=== PATIENT | male | born 1990 | race Caucasian/White ===

== ENCOUNTER → 2023-08-24 09:26 | Outpatient (CLI) | payer OTHER, SELFPAY ==
--- NOTE | ~2023-08-24 | CT_ITS ---
EXAMINATION: CT sinus wo con DATE: 08/24/2023 09:40 INDICATION: Chronic ethmoidal sinusitis TECHNIQUE: Computed tomography (CT) of the paranasal sinuses was performed without intravenous contra st. The dose-length product (DLP) was 263.20 mGy-cm. Iterative reconstruction was used. COMPARISON: None FINDINGS: The left frontal sinus is hypoplastic. Changes of bilateral maxillary sinus window procedur es are again noted. There is mild mucosal thickening of the ethmoidal air cells on the right. There i s a chronic 2.1 cm mucous retention cyst located inferolaterally in the left maxillary sinus. There i s a 6 mm mucous retention cyst located laterally in the right frontal sinus. There is a 10 mm mucus r etention cyst located inferiorly in the right maxillary sinus. There is a 4 mm by 15 mm mucous retent ion cyst located medially in the right maxillary sinus. The ostiomeatal units are patent. Visualized soft tissues are unremarkable. IMPRESSION: 1. Sinus disease as described above. Reviewed, dictated and finalized at location L. YL BLENDER OPERATOR
== END ==
PROVIDERS: PCP Otolaryngology; Visit Provider Otolaryngology
DX: J32.2 Chronic ethmoidal sinusitis (principal)
CPT/HCPCS: 70486

== ENCOUNTER 2025-03-24 16:08 | Emergency (ER) | payer BC, SELFPAY ==
--- NOTE | ~2025-03-24 | CT_ITS ---
EXAMINATION: CT brain wo con DATE: 03/24/2025 20:27 INDICATION: headache . TECHNIQUE: Computed tomography (CT) of the head was performed without intravenous contrast. The mA wa s adjusted according to patient size. Iterative reconstruction technique was employed. The dose-lengt h product was 605.33 mGy-cm. COMPARISON: None. FINDINGS: No acute intracranial hemorrhage or extra-axial fluid collection. No hydrocephalus, mass, or herniation. No acute ischemic infarct. Unremarkable dural venous sinus attenuation. No acute osseous abnormality. The aerated spaces are clear. Status post bilateral antral window procedure. IMPRESSION: No acute intracranial process. Reviewed, dictated and finalized at location K.
--- NOTE | ~2025-03-24 | XR_ITS ---
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 RESULT: Lines, tubes, and devices: None. Lungs and pleura: Clear. Cardiomediastinal silhouette: Normal. Other: No acute osseous or upper abdominal finding. IMPRESSION: No acute cardiopulmonary process. Reviewed, dictated and finalized at location K.
--- NOTE | ~2025-03-24 | CT_ITS ---
EXAMINATION: CT abdomen pelvis w con DATE: 03/24/2025 20:27 INDICATION: rlq pain TECHNIQUE: Computed tomography (CT) of the abdomen and pelvis was performed with 100 mL Omnipaque-350 intravenous contrast. Automated exposure control and iterative reconstruction technique were employe d. The dose-length product was 1627.25 mGy-cm. COMPARISON: 07/11/2018. FINDINGS: Lower thorax: Unremarkable Liver: Diffusely low-density parenchyma. Biliary/Gallbladder: Gallbladder is normal. No bile duct dilation. Pancreas: No mass or duct dilation. Spleen: Normal. Adrenals:No mass. Kidneys: No suspicious mass, obstructing stone, or hydronephrosis. GI tract: No small or large bowel dilation. Normal appendix. Diverticulosis without diverticulitis. Mesentery/Peritoneum: No ascites, mass, or free air. Retroperitoneum: No mass. Pelvis: Pelvic organs are within normal limits. Soft Tissues: Soft tissues and body wall unremarkable. Bones: No acute osseous finding. IMPRESSION: Hepatic steatosis. Otherwise, no acute abdominopelvic process detected Reviewed, dictated and finalized at location K.
--- OUTSIDE RECORDS SUMMARY | 2025-03-24 16:10 | XMS_ITS | Clinical Summary ---
Author Organization [facility] Address [address] [place] [address] Phone Care Team Providers Care Burrer Operator Name Role Phone Charla Kruse MD Primary Care Provider + Allergies Active Allergy Reactions Criticality Noted Date Comments Adhesive Tape-Silicones Itching Low 04/04/2024 Paper tape; hives, itching, erythema Medications serdexmethylphe n-dexmethylphen 52.3 mg- 10.4 mg Capsule Take 52.3 mg by mouth daily. Active escitalopram oxalate (LEXAPRO) 20 mg tablet Take 20 mg by mouth daily. Active modafiniL (PROVIGIL) 200 mg Tablet Take 200 mg by mouth daily. Active traZODone (DESYREL) 100 mg tablet Take 1 Tablet (100 mg) by mouth nightly as needed for Insomnia. 30 Tablet 02/21/2025 Active ARIPiprazole (ABILIFY) 10 mg tablet Take 1 Tablet (10 mg) by mouth daily. 30 Tablet 02/22/2025 Active hydrOXYzine HCL (ATARAX) 50 mg tablet Take 1 Tablet (50 mg) by mouth every 6 hours as needed for Anxiety. 45 Tablet 02/21/2025 Active Active Problems Problem Noted Date Diagnosed Date Other specified attention de ficit hyperactivity disorder (ADHD) 02/12/2025 Physical exam 04/07/2024 Sinus disease 04/07/2024 MDD (major depressive disord er), recurrent severe, without psychosis 04/05/2024 DANIAL (generalized anxiety disorder) 04/05/2024 Lightheadedness 11/08/2021 Anxiety and depression 06/28/2018 Intractable episodic headache 02/19/2018 Obesity (BMI 30.0-34.9) Resolved Problems Problem Noted Date Diagnosed Date Resolved Date MILLER (dyspnea on exertion) 11/08/2021 Encounters Date Type Department Care Team Description 02/11/2025 3:09 PM CDT - 02/21/2025 1:10 PM CDT Hospital Encounter [facility] [address] [address] [place] [address] Bj Sahu MD Garcia Ferrer, Eduardo, MD Shemwell, Kathryn, MD MDD (major depressive disorder), recurrent severe, without psychosis (CMS/HCC) Discharge Disposition: Home or Self Care 02/11/2025 8:27 AM CDT - 02/11/2025 11:59 PM CDT Hospital Encounter [facility] Intake [facility] [address] [place] [address] Dara Chapa MD [facility] Intake, Nurse Discharge Disposition: Home or Self Care 02/11/2025 Travel from Last 3 Months Family History Medical History Relation Name Comments Migraines Father Asthma Maternal Grandfather Healthy Mother Thyroid Disease Mother Hypertension Paternal Grandfather Bronchitis Neg Hx Cancer Neg Hx Celiac Disease Neg Hx Crohn's Disease Neg Hx Diabetes Neg Hx Emphysema Neg Hx Heart Failure Neg Hx Inflammatory Bowel Disease Neg Hx Lung Cancer Neg Hx Mesothelioma Neg Hx Ulcerative Colitis Neg Hx Relation Name Status Comments Father Alive Maternal Grandfather Mother Alive Paternal Grandfather Social History Tobacco Use Types Packs/Day Years Used Date Smoking Tobacco: Former Cigarettes Q uit: 2008 Smokeless Tobacco: Never Tobacco Cessation:Counseling Given: No Alcohol Use Standard Drinks/Week Comments Yes 0 (1 standard drink = 0.6 oz pur e alcohol) Social Feeling Safe Answer Date Recorded Are you in a relationship wi th someone who hurts you emotionally and/or physically? No 02/11/2025 Food Insecurity Answer Date Recorded Patient needs follow up regardin 01/12/2025 Transportation Needs Answer Date Record ed Patient needs follow up regardin 01/12/2025 Housing Stability Answer Date Recorded Social/Environmental Concerns No concerns Utility Needs Answer Date Recorded Patient needs follow up regardin 01/12/2025 Education Answer Date Recorded What is the highest level of school you have completed or the highest degree you have received? Associate degree: academic program 04/17/2024 Sex and Gender Information Value Date Recorded Sex Assigned at Not on file Legal Sex Male 1:31 PM CDT Gender Identity Not on file Sexual Orientation Not on file Occupation Industry Job Start Date Job End Date [employer] Not on file Not on file Not on file Last Filed Vital Signs Vital Sign Reading Time Taken Comments Blood Pressure 118/71 02/21/2025 8:20 AM CDT Pulse 93 02/21/2025 8:20 AM CDT Temperature 36.2 C (97.1 F) 02/21/2025 8:20 AM CDT Respiratory Rate 18 02/21/2025 8:20 AM CDT Oxygen Saturation 95% 02/21/2025 8:20 AM CDT Inhaled Oxygen Concentration - - Weight 123.8 kg (273 lb) 02/11/2025 7:01 PM CDT Height 182.9 cm (6') 02/11/2025 7:01 PM CDT Body Mass Index 37.03 02/11/2025 7:01 PM CDT Plan of Treatment Health Maintenance Due Date Last Done Comments DTAP/TDAP/TD VACCINES (1 - Tdap) 2007 HEPATITIS B VACCINES (1 of 3 - 19+ 3-dose series) 2007 INFLUENZA VACCINE (#1) 2025 , 07/28/2020, 11/20/2018, Additional history exists Pre-Diabetes and Diabetes Screening 02/13/2028 02/12/2025, 04/05/2024 HPV VACCINES Aged Out No longer eligi ble based on patient's age to complete this topic Procedures Procedure Name Priority Date/Time Associated Diagnosis Comments LIPID PANEL Routine 02/12/2025 8:48 AM CDT COMPREHENSIVE METABOLIC PANEL Routine 02/12/2025 8:48 AM CDT CBC WITH DIFFERENTIAL Routine 02/12/2025 8:48 AM CDT HEMOGLOBIN A1C Routine 02/12/2025 8:48 AM CDT TSH Routine 02/12/2025 8:48 AM CDT DRUG SCREEN, URINE Routine 02/11/2025 6: 31 PM CDT from Last 3 Months Results * (ABNORMAL) CBC WITH DIFFERENTIAL (02/12/2025 8:48 AM CDT) WBC 5.4 4.0 - 9.8 K/uL 02/12/2025 9:20 AM CDT [facility] RBC 5.11 4.50 - 5.40 M/uL 02/12/2025 9:20 AM CDT [facility] HEMOGLOBIN 14.7 13.6 - 16.5 g/dL 02/12/2025 9:20 AM CDT [facility] HEMATOCRIT 43.9 40.0 - 48.0 % 02/12/2025 9:20 AM CDT [facility] MCV 85.9 82.0 - 99.0 fL 02/12/2025 9:20 AM CDT [facility] MCH 28.8 27.2 - 32.6 pg 02/12/2025 9:20 AM CDT [facility] MCHC 33.5 31.5 - 35.5 g/dL 02/12/2025 9:20 AM CDT [facility] RDW 13.2 11.5 - 14.5 % 02/12/2025 9:20 AM CDT [facility] RDW-STDEV 41.3 37.1 - 48.7 fL 02/12/2025 9:20 AM CDT [facility] PLATELETS 394(H) 140 - 350 K/uL 02/12/2025 9:20 AM CDT [facility] MPV 9.6 9.3 - 12.4 fL 02/12/2025 9:20 AM CDT [facility] NEUTROPHILS 39 % 02/12/2025 9:20 AM CDT [facility] LYMPHOCYTES 48 % 02/12/2025 9:20 AM CDT [facility] MONOCYTES 7 % 02/12/2025 9:20 AM CDT [facility] EOSINOPHILS 5 % 02/12/2025 9:20 AM CDT [facility] BASOPHILS 2 % 02/12/2025 9:20 AM CDT [facility] IMMATURE GRANULOCYTES 0 % 02/12/2025 9:20 AM CDT [facility] NEUTROPHIL ABSOLUTE 2.10 1.90 - 7.00 K/uL 02/12/2025 9:20 AM CDT [facility] LYMPHOCYTE ABSOLUTE 2.61 0.70 - 4.50 K/uL 02/12/2025 9:20 AM CDT [facility] MONOCYTE ABSOLUTE 0.38 0.10 - 1.30 K/uL 02/12/2025 9:20 AM CDT [facility] EOSINOPHIL ABSOLUTE 0.25 0.00 - 0.70 K/uL 02/12/2025 9:20 AM CDT [facility] BASOPHILS ABSOLUTE 0.08 0.00 - 0.20 K/uL 02/12/2025 9:20 AM CDT [facility] IMMATURE GRANULOCYTES ABSOLUTE 0.01 0.00 - 0.03 K/uL 02/12/2025 9:20 AM CDT [facility] Blood Venipuncture / Unknown 02/12/2025 8:48 AM CDT 02/12/2025 8:53 AM CDT us Bj Sahu MD HEMATOLOGY ORDERABLES Final Resu lt [facility] CLIA# [id number] 5 SJamal [facility] [place] [address] * TSH (02/12/2025 8:48 AM CDT) TSH 2.07 0.27 - 4.20 uIU/mL 02/12/2025 9:41 AM CDT [facility] Blood Venipuncture / Unknown 02/12/2025 8:48 AM CDT 02/12/2025 8:53 AM CDT Bj Sahu MD CHEMISTRY ORDERABLES Final Resul t Performing Organization Address [facility] Co de Phone Number [facility] [id number] [address] [place] [address] * HEMOGLOBIN A1C (02/12/2025 8:48 AM CDT) HEMOGLOBIN A1C 5.6 <5.7 % 02/12/2025 9:57 AM CDT [facility] EST. AVG GLUCOSE, A1C 114 mg/dL 02/12/2025 9:57 AM CDT [facility] Blood Venipuncture / Unknown 02/12/2025 8:48 AM CDT 02/12/2025 8:53 AM CDT Narrative [facility] - 02/12/2025 9:57 AM CDT HGB A1C INTERPRETATION NORMAL: <5.7% PRE-DIABETES: 5.7 - 6.4% DIABETES: 6.5% OR GREATER Bj Sahu MD CHEMISTRY ORDERABLES Final Resul t Performing Organization Address [facility] Co de Phone Number [facility]# [id number] [address] [place] [address] * (ABNORMAL) LIPID PANEL (02/12/2025 8:48 AM CDT) CHOLESTEROL 253(H) <200 mg/dL 02/12/2025 9:41 AM CDT [facility] TRIGLYCERIDE 260(H) <150 mg/dL 02/12/2025 9:41 AM CDT [facility] HDL 47 40 - 59 mg/dL 02/12/2025 9:41 AM CDT [facility] LDL CALCULATED 154(H) <100 mg/dL 02/12/2025 9:41 AM CDT [facility] NON-HDL CHOLESTEROL 206(H) <130 mg/dL 02/12/2025 9:41 AM T [facility] Blood Venipuncture / Unknown 02/12/2025 8:48 AM CDT 02/12/2025 8:53 AM CDT [facility] - [facility] - 02/12/2025 9:41 AM CDT TOTAL CHOLESTEROL mg/dL Desirable <200 Borderline high 200-239 High >=240 TRIGLYCERIDES mg/dL Normal <150 Borderline high 150-199 High 200-499 Very high >=500 HDL CHOLESTEROL mg/dL Low <40 Normal 40-59 Desirable >=60 NON HDL CHOLESTEROL mg/dL Optimal <130 Near Optimal 130-159 Borderline High 160-189 Very High >=190 CALCULATED LDL mg/dL LDL <70, OPTIMAL if have Atherosclerotic cardiovascular disease (ASCVD) or intermediate or higher (>7.5%) 10 year risk of ASCVD including most adults with diabetes. LDL <100, Optimal in adult patients with low (<7.5%) 10 year ASCVD risk LDL 100-160, Suboptimal LDL >160, High LDL >190, Very high LDL calculated using the Friedewald equation. ATPIII Guidelines Reference Ranges for Lipid Panels (NCEP/AMA) . Bj Sahu MD CHEMISTRY ORDERABLES Final Resul t [facility]# [id number] [address] [facility] [place] [place] [address] * (ABNORMAL) COMPREHENSIVE METABOLIC PANEL (02/12/2025 8:48 AM CDT) SODIUM 139 136 - 145 mmol/L 02/12/2025 9:41 AM T [facility] POTASSIUM 4.2 3.5 - 5.0 mmol/L 02/12/2025 9:41 AM T [facility] - . [facility] CHLORIDE 103 98 - 107 mmol/L 02/12/2025 9:41 AM T [facility] - . [facility] CO2 24 22 - 29 mmol/L 02/12/2025 9:41 AM [facility] [employer] [facility] CALCIUM 9.5 8.6 - 10.2 mg/dL 02/12/2025 9:41 AM [facility] - . [facility] BUN 14 6 - 20 mg/dL 02/12/2025 9:41 AM [facility] - . [facility] CREATININE 0.96 0.67 - 1.17 mg/dL 02/12/2025 9:41 AM [facility] [employer] [facility] GLUCOSE 115(H) 74 - 99 mg/dL 02/12/2025 9:41 AM [facility] - . [facility] TOTAL PROTEIN 6.9 6.7 - 8.6 g/dL 02/12/2025 9:41 AM [facility] ALBUMIN 4.4 3.5 - 5.2 g/dL 02/12/2025 9:41 AM [facility] [employer] [facility] BILIRUBIN TOTAL 0.4 0.0 - 1.2 mg/dL 02/12/2025 9:41 AM [facility] ALKALINE PHOSPHATASE 78 40 - 129 U/L 02/12/2025 9:41 AM [facility] [employer] [facility] AST 33 <41 U/L 02/12/2025 9:41 AM [facility] ALT 30 <42 U/L 02/12/2025 9:41 AM [facility] GFR >60 >=60 mL/min/1.7 3 sq meter 02/12/2025 9:41 AM [facility] [employer] [facility] Comment:eGFR calculated with 2020 CKD-EPI equation. Vegetarian diet, extremely high or low muscle mass, and may affect results. Cystatin C with Glomerular Filtration Rate is a suitable alternative for these patients. ANION GAP 12 8 - 16 mmol/L 02/12/2025 9:41 AM [facility] [employer] [facility] Blood Venipuncture / Unknown 02/12/2025 8:48 AM T 02/12/2025 8:53 AM [facility] - 02/12/2025 9:41 AM CDT Samples containing indocyanine green cause interferences on Total and/or Direct Bilirubin and must not be measured. Bj Sahu MD CHEMISTRY ORDERABLES Final Resul t [facility]# [id number] [address] [place] [address] * DRUG SCREEN, URINE (02/11/2025 6:31 PM CDT) [facility] AMPHETAMINE QUAL, URINE Negative Negative 02/11/2025 7:33 PM CDT [facility] BARBITURATE QUAL, URINE Negative Negative 02/11/2025 7:33 PM CDT [facility] BENZODIAZEPINE QUAL, URINE Negative Negative 02/11/2025 7:33 PM CDT [facility] COCAINE QUAL URINE Negative Negative 2024 7:33 PM CDT [facility] OPIATE QUAL, URINE Negative Negative 2024 7:33 PM CDT [facility] CANNABINOIDS QUAL, URINE Negative Negative 02/11/2025 7:33 PM CDT [facility] PCP QUAL, URINE Negative Negative 7:33 PM CDT [facility] OXYCODONE QUAL, URINE Negative Negative 02/11/2025 7:33 PM CDT [facility] METHADONE QUAL, URINE Negative Negative 02/11/2025 7:33 PM CDT [facility] FENTANYL QUAL, URINE Negative Negative 02/11/2025 7:33 PM CDT [facility] CREATININE, URINE 129.0 40.0 - 278.0 mg/dL 02/11/2025 7:33 PM T [facility] Comment:Reference Range vari es with fluid intake and diet. Urine URINE SPECIMEN OBTAINED BY CLEAN CATCH PROCEDURE / Unknown Collection / Unknown 02/11/2025 6:31 PM CDT 02/11/2025 6:39 PM CDT [facility] LABORATORY [facility] - 02/11/2025 7:33 PM CDT This test is a qualitative screen. The presumptive positive results should not be used for legal purposes. If confirmation of results is desired, the lab must be contacted without delay. Drug Ref. Range Screening Threshold Amphetamines Negative 500 ng/mL Barbiturates Negative 200 ng/mL Benzodiazepines Negative 100 ng/mL Cannabinoids Negative 50 ng/mL Cocaine Negative 150 ng/mL Methadone Negative 300 ng/mL Opiates Negative 300 ng/mL Oxycodone Negative 100 ng/mL Phencyclidine Negative 25 ng/mL Fentanyl Negative 5 ng/mL us Bj Sahu MD URINE ORDERABLES Final Result [facility] CLIA# [id number] [address] [place] [address] from Last 3 Months Insurance RX [employer] RX Member Subscriber Plan / Payer (Ef fective for All Dates) Name:Jose Munson Relation to Subscriber:Self Name:[place] Subscriber ID:Not on file Payer ID:Not on file Type:RX Commercial Address: [address] [place] BCBS BLUE ACCESS/TRUE BLUE PPO Advance Directives For more information, please contact: [phone] * Full Code (Latest Code Status on File) Date Activated Date Inactivated Comments 02/11/2025 3:19 PM 02/21/2025 4:26 PM * Full Code Date Activated Date Inactivated Comments 04/04/2024 8:12 PM 04/12/2024 5:22 PM * Full Code Date Activated Date Inactivated Comments 08/15/2018 10:09 AM 08/15/2018 2:31 PM * Full Code Date Activated Date Inactivated Comments 02/19/2018 1:15 AM 02/20/2018 5:24 PM Care Teams Burrer Operator Relationship Specialty Start Date End Date Charla Kruse MD [address] [place] [phone] PCP - General Family Practice 11/06/18
--- OUTSIDE RECORDS SUMMARY | 2025-03-24 16:10 | XMS_ITS | Encounter Summary ---
Author Organization [facility] Health Address [address] [place] [place] [address] Care Team Providers Care Indoor Sports Centre Manager Name Role Phone Kinga Owen Primary Care Provider [phone] Encounter Details Date Type Department Care Team (Late st Contact Info) Description 01/13/2018 Ophth Exam [facility] [address] [place] [address] Nigel Alas MD [address] [place] [id number] Social History Tobacco Use Types Packs/Day Years Used Date Smoking Tobacco: Never Smokeless Tobacco: Never Sex and Gender Information Value Date Recorded Sex Assigned at Not on file Legal Sex Male 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
--- OUTSIDE RECORDS SUMMARY | 2025-03-24 16:10 | XMS_ITS | Clinical Summary ---
Author Organization [facility] Address [facility] [place] [address] Care Team Providers Care Mechanics Supervisor Name Role Phone Charla Kruse MD Primary Care Provider [phone] Allergies No known active allergies Medications indomethacin 25 MG capsule 02/23/2018 Active tizanidine 2 MG tablet Take 2 mg by mouth every 8 (eight) hours as needed. 04/10/2018 Active busPIRone 10 MG tabletIndicatio ns:Anxiety Take 1 tablet (10 mg total) by mouth 3 (three) times daily. 90 tablet 2 07/19/2018 Active buPROPion XL (WELLBUTRIN XL) 300 MG 24 hr tablet Take 300 mg by mouth daily. Active omeprazole 20 MG capsule Take 1 capsule by mouth daily. 07/16/2018 Active hydrocodone-vickie taminophen (NORCO) 5-325 MG tablet Take 1 tablet by mouth every 4 (four) hours as needed for Pain. 20 tablet 12/14/2018 Active Active Problems Patient Care Coordination No te Formatting of this note migh t be different from the original. PT Precautions: Balance issues (use gait belt), Depression Problem Noted Date Diagnosed Date Intractable pain 12/14/2018 Inadequate pain control 12/14/2018 Left upper quadrant pain 07/19/2018 Abnormal laboratory test 07/19/2018 ADD (attention deficit disorder) 05/24/2018 Anxiety 05/24/2018 Mood swings 05/24/2018 URI, acute 04/16/2018 Obesity (BMI 30.0-34.9) 01/22/2018 Migraines 01/18/2018 Vitamin D deficiency 01/18/2018 Resolved Problems Problem Noted Date Diagnosed Date Resolved Date Immunization due 06/28/2018 05/22/2020 Diverticulitis 01/18/2018 07/19/2018 Encounter for preventive health examination 01/14/2018 05/22/2020 Family History Medical History Relation Comments Heart Maternal Grandfather Stroke Maternal Grandfather Heart Maternal Grandmother Diabetes Paternal Aunt Psychiatry Paternal Grandmother Relation Status Comments Father Alive Maternal Grandfather Maternal Grandmother Mother Alive Paternal Aunt Paternal Grandmother Social History Tobacco Use Types Packs/Day Years Used Date Smoking Tobacco: Never Smokeless Tobacco: Never Alcohol Use Standard Drinks/Week Comments No 0 (1 standard drink = 0.6 oz pur e alcohol) socially AUDIT-C Answer Date Recorded Frequency of Alcohol Consumption Monthly or less 07/19/2018 Average Number of Drinks Not on file 018 Frequency of Binge Drinking Not on file 04/2018 Sex and Gender Information Value Date Recorded Sex Assigned at Not on file Legal Sex Male 3:45 PM CDT Gender Identity Not on file Sexual Orientation Not on file Last Filed Vital Signs Vital Sign Reading Time Taken Comments Blood Pressure 146/79 12/15/2018 4:29 AM CDT Pulse 60 12/15/2018 4:29 AM CDT Temperature 36.3 C (97.3 F) 12/15/2018 4:29 AM CDT Respiratory Rate 18 12/15/2018 4:29 AM CDT Oxygen Saturation 96% 12/15/2018 4:29 AM CDT Inhaled Oxygen Concentration - - Weight 110.5 kg (243 lb 9.7 oz) 12/15/2018 5:10 AM CDT Height 182.9 cm (6') 12/14/2018 5:51 AM CDT Body Mass Index 33.04 12/14/2018 5:51 AM CDT Plan of Treatment Health Maintenance Due Date Last Done Comments Annual Physical 1991 DTaP, Tdap and Td Vaccines ( 1 - Tdap) 2007 Hepatitis B Vaccines (1 of 3 - 19+ 3-dose series) 2007 COVID-19 Vaccine ( - 2023-2 5 season) 2024 PHQ-2 (Physician Ford) 09/11/2024 Hepatitis C Completed 07/10/2018 HPV Vaccines Aged Out No longer eligi ble based on patient's age to complete this topic Meningococcal B Vaccine Aged Out No l onger eligible based on patient's age to complete this topic Meningococcal Vaccine Aged Out No oscar ann eligible based on patient's age to complete this topic Pneumococcal Vaccine: Pediat rics (0 to 5 Years) and At-Risk Patients (6 to 49 Years) Aged Out No longer eligi ble based on patient's age to complete this topic RSV Immunizations Under 20 Months Aged Out No longer eligible based on patient's age to complete this topic Procedures Procedure Name Priority Date/Time Associated Diagnosis Comments HEPATITIS PANEL,ACUTE 07/10/2018 3:04 PM CDT from Last 3 Months or Most Recently Relevant to Health Maintenance Results * HEPATITIS PANEL,ACUTE (07/10/2018 3:04 PM CDT) HEPATITIS A IGM Negative Negative [facility] 1 HEPATITIS B SURFACE AG Negative Negative [facility] 1 HEP B CORE AB COMMENT Negative Negative [facility] 1 HEPATITIS C AB <0.1 0.0 - 0.9 s/co ratio [facility] 1 Comment: Negative: < 0.8 Indeterminate: 0.8 - 0.9 Positive: > 0.9 The CDC recommends that a positive HCV antibody result be followed up with a HCV Nucleic Acid Amplification test (386742). 07/10/2018 3:04 PM CDT 07/10/2018 Narrative [facility] - 07/27/2018 2:12 PM SAFETY DEPOSIT CLERK Performed at: 01 - [facility] [address] [id number] Professor Of Biblical Studies: Carlo Arredondo PhD, Phone: [phone] us [facility] Final Resul t [facility] [address] [place] [address] [facility] 1 from Last 3 Months or Most Recently Relevant to Health Maintenance Advance Directives * Full Code (Latest Code Status on File) Date Activated Date Inactivated Comments 12/14/2018 1:20 PM 12/15/2018 11:25 AM Care Teams Mechanics Supervisor Relationship Specialty Start Date End Date Charla Kruse MD [address] [place] [address] [place] [address] PCP - General FAMILY PRACTICE 12/05/18
--- OUTSIDE RECORDS SUMMARY | 2025-03-24 16:10 | XMS_ITS | Clinical Summary ---
Author Organization [facility] Address [address] [facility] [place] [address] Care Team Providers Care Lead Sustainability Specialist Name Role Phone Brayden Kinga [facility] Primary Care Provider [phone] Source Comments [facility],non-owned Affiliates and Associated Physician Practices is amultiple site organization consisting of ambulatory clinics and hospital sitesin [place], [place], [place] and [place]. This disclosure is being madepursuant to the Care Everywhere program and may not contain all information available regarding this patient. Last updated 18.[facility] [employer] [facility] Allergies No known active allergies Medications * Be aware that medications may not be up to date on this document. Alwaysverify current medications with the patient. atomoxetine (STRATTERA) 25 MG capsule atomoxetine 25 mg capsule TAKE 1 CAPSULE EVERY DAY FOR 1 WEEK,THEN TAKE 2 CAPSULES EVERY AM FOR ONE WEEK, TAKE 3 CAPS EVERY AM Active fluticasone propionate (FLONASE) 50 MCG/ACT nasal spray every 24 hours Activ e Cetirizine-Pseu doephedrine (ZYRTEC-D PO) Active Active Problems Problem Noted Date Diagnosed Date Acute intractable headache 02/14/2018 Social History Tobacco Use Types Packs/Day Years Used Date Smoking Tobacco: Former Cigarettes Q uit: 2009 Smokeless Tobacco: Never Tobacco Cessation:Counseling Given: No Sex and Gender Information Value Date Recorded Sex Assigned at Not on file Legal Sex Male 4:14 PM [employer] DEVELOPER Gender Identity Not on file Sexual Orientation Not on file Last Filed Vital Signs Vital Sign Reading Time Taken Comments Blood Pressure 120/80 09/02/2021 5:06 PM [employer] DEVELOPER Pulse 87 09/02/2021 5:06 PM [employer] DEVELOPER Temperature 36.7 C (98 F) 09/02/2021 5:06 PM [employer] DEVELOPER Respiratory Rate 16 09/02/2021 5:06 PM [employer] DEVELOPER Oxygen Saturation 96% 09/02/2021 5:06 PM [employer] DEVELOPER Inhaled Oxygen Concentration - - Weight 117.9 kg (260 lb) 09/02/2021 5:06 PM MI[employer]OS[employer] DEVELOPER Height 182.9 cm (6') 09/02/2021 5:06 PM [employer]OS[employer] DEVELOPER Body Mass Index 35.26 09/02/2021 5:06 PM [employer] DEVELOPER Plan of Treatment Health Maintenance Due Date Last Done Comments HIV SCREENING 2003 HEPATITIS C SCREENING 10/06/2006 DTAP/TDAP/TD VACCINES (1 - Tdap) 2007 HEPATITIS B VACCINE (1 of 3 - 19+ 3-dose series) 2007 HPV VACCINE (1 - 3-dose SCDM series) 2015 COVID-19 VACCINE (3 - 2023-2 5 season) 2024 12/05/2020, 11/12/2020 DEPRESSION SCREENING 09/11/2024 INFLUENZA VACCINE (#1) 2025 , 06/25/2020 ZOSTER VACCINE (1 of 2) 2038 HIB VACCINE Aged Out No longer eligi ble based on patient's age to complete this topic MENINGOCOCCAL (Group B) VACCINE SHARED DECISION-MAKING Aged Out No longer eligible based on patient's age to complete this topic MENINGOCOCCAL GROUPS A/C/Y/W VACCINE Aged Out No longer eligible b ased on patient's age to complete this topic PNEUMOCOCCAL VACCINE Aged Out No long er eligible based on patient's age to complete this topic [place] [address] [employer] [facility] Address: [address] [place] [address] Advance Directives * Full Code (Latest Code Status on File) Date Activated Date Inactivated Comments 02/14/2018 6:57 PM 02/18/2018 12:19 PM * Full Code Date Activated Date Inactivated Comments 02/14/2018 5:36 PM 02/14/2018 6:57 PM Care Teams Lead Sustainability Specialist Relationship Specialty Start Date End Date Kinga Owen APRN-CNP [address] [place] [id number] PCP - General Nurse Practitioner 02/14/18
--- OUTSIDE RECORDS SUMMARY | 2025-03-24 16:10 | XMS_ITS | Encounter Summary ---
Author Organization [facility] Address [facility] [place] [address] Care Team Providers Care Med Asst Name Role Phone Kinga Owen Primary Care Provider [phone] Charla Kruse MD Primary Care Provider [phone] Encounter Details Date Type Department Care Team (Late st Contact Info) Description 07/25/2018 [employer] Message Enc [facility] Family & Internal Medicine [id number] [place] [address] Kinga wOen FNP [facility] [place] [address] RE: RE: RE: Test Results Social History Tobacco Use Types Packs/Day Years Used Date Smoking Tobacco: Former Smokeless Tobacco: Never Alcohol Use Standard Drinks/Week Comments Yes 0 (1 standard drink = 0.6 oz pur e alcohol) AUDIT-C Answer Date Recorded Frequency of Alcohol [...] on filedocumented in this encounter Care Teams Med Asst Relationship Specialty Start Date End Date Kinga Owen FNP [address] [place] [address] PCP - General NURSE PRACTITIONER 06/26/18 12/04/18 Charla Kruse MD [address] [place] [address] PCP - General FAMILY PRACTICE 12/05/18 documented as of this encounter
--- OUTSIDE RECORDS SUMMARY | 2025-03-24 16:10 | XMS_ITS | Encounter Summary ---
Author Organization [facility] Address [facility] [place] [address] Care Team Providers Care Bus Driver School Name Role Phone Kinga Owen Primary Care Provider [phone] Charla Kruse MD Primary Care Provider [phone] Encounter Details Date Type Department Care Team (Latest Contact Info) Description 06/01/2018 Abstract [facility] Celia Dumont MD Social History Tobacco Use Types Packs/Day Years Used Date Smoking Tobacco: Never Assessed Sex and Gender Information Value Date Recorded Sex Assigned at Not on file Legal Sex Male 3:45 PM CDT Gender Identity Not on file Sexual Orientation Not on file documented as of this encounter Plan of Treatment Not on file documented as of this encounter Visit Diagnoses Not on filedocumented in this encounter Care Teams Bus Driver School Relationship Specialty Start Date End Date Kinga Owen FNP [address] [place] [address] PCP - General NURSE PRACTITIONER 06/26/18 12/04/18 Charla Kruse MD [address] [place] [address] PCP - General FAMILY PRACTICE 12/05/18 documented as of this encounter
--- OUTSIDE RECORDS SUMMARY | 2025-03-24 16:10 | XMS_ITS | Clinical Summary ---
Author Organization [facility] Address [address] [place] [address] Phone Care Team Providers Care Accounts Officer Name Role Phone Provider, Not On File Primary Care Provider Unav ailable Medications escitalopram (Lexapro) 10 MG Tablet Take 10 mg by mouth daily. Active Serdexmethylphen -Dexmethylphen (Azstarys) 39.2-7.8 MG Capsule Take by mouth. Active Active Problems Problem Noted Date Diagnosed Date DANIAL (generalized anxiety disorder) 12/12/2024 MDD (major depressive disord er), recurrent episode, moderate 12/12/2024 Family History Medical History Relation Name Comments Depression Father (63) No Known Problems Mother (57) No Known Problems Sister (42) Relation Name Status Comments Father (63) Alive Mother (57) Alive Sister (42) Alive Social History Tobacco Use Types Packs/Day Years Used Date Smoking Tobacco: Never Smokeless Tobacco: Never Tobacco Cessation:Counseling Given: Not Answered Alcohol Use Standard Drinks/Week Comments Yes 0 (1 standard drink = 0.6 oz pur e alcohol) on occasion Sexually Active Control Partners Comments Not Currently Sex and Gender Information Value Date Recorded Sex Assigned at Not on file Legal Sex Male 6:30 PM CDT Gender Identity Not on file Sexual Orientation Not on file Plan of Treatment Health Maintenance Due Date Last Done Comments Human Papillomavirus (HPV) Immunization (1 - Male 3-dose series) 2003 Hepatitis B Immunization (1 of 3 - 19+ 3-dose series) 2007 SARS-COV-2 Immunization ( season) 2024 12/05/2020, 11/12/2020 Influenza Immunization (#1) 05/12/202507/12, 06/25/2020, 05/31/2019 Respiratory Syncytial Virus (RSV) Immunization (Adult) (1 - 1-dose 75+ series) 2063 Hepatitis C Virus (HCV) Screening Completed 07/10/2018 TdaP Immunization Completed 04/10/2019 Meningococcal Immunization (ACWY) Aged Out No longer eligible b ased on patient's age to complete this topic Pneumococcal Immunization Combined Aged Out No longer eligible b ased on patient's age to complete this topic Rotavirus Immunization Aged Out No lo nger eligible based on patient's age to complete this topic Goals Goal Patient Goal Type Associated Problems Recent Progress Patient-Stated? Author Depression and ANXIETY Depression Yes Rebekah Tejeda, [facility] Note: Learn to process in a healthier way and understand who I am Goal/Objective: Improve communication and coping. Anticipated Time Frame for Goal Completion: 6 months Goal Reviewed with: patient Readiness to change: Ready to change Department associated with goal: [facility] Steps to achieve goal: will attend counseling/psychotherapy sessions at least once monthly, at least 6 sessions, utilizing individual and/or group sessions to express thoughts and feelings. to identify, verbalize and process at least three contributing factors/triggers to anxiety and depression. to identify and verbalize at least three actions/skills to prevent and/or cope with anxiety and depression. to put into action, at least one time weekly, for one month, an action/skill to prevent and or cope with anxiety and depression. Insurance [place], [place] [id number] [place] [address] Care Teams Accounts Officer Relationship Specialty Start Date End Date Provider, Not On File [place] PCP - General 12/13/24
[2025-03-24 16:16] VITALS: BP 161/106; PULSE 86; RESP 20; TEMP 36.7; O2SAT 97
--- OUTSIDE RECORDS SUMMARY | 2025-03-24 17:56 | XMS_ITS | Clinical Summary ---
Author Organization [facility] Address [address] [place] [address] Phone Care Team Providers Care Agriculture Laboratory Technician Name Role Phone Provider, Not On File [...] Depression and ANXIETY Depression Yes Rebekah Tejeda, [facility] Note: Learn to process in a healthier way and understand who I am Goal/Objective: Improve communication and coping. Anticipated Time Frame for Goal Completion: 6 months Goal Reviewed with: patient Readiness to change: Ready to change Department associated with goal: [facility] Steps to achieve [...] or cope with anxiety and depression. Insurance [place], [place] [id number] [place] [address] Care Teams Agriculture Laboratory Technician Relationship Specialty Start Date End Date Provider, Not On File [place] PCP - General 12/13/24
--- OUTSIDE RECORDS SUMMARY | 2025-03-24 17:56 | XMS_ITS | Encounter Summary ---
Author Organization [facility] Address [facility] [place] [address] Care Team Providers Care Tractor Operator Name Role Phone Kinga Owen Primary Care Provider [phone] Charla Kruse MD Primary Care Provider [phone] Encounter Details Date Type Department Care Team (Latest Contact Info) Description 06/01/2018 Abstract [facility] Celia Dumont MD Social [...] on filedocumented in this encounter Care Teams Tractor Operator Relationship Specialty Start Date End Date Kinga Owen FNP [address] [place] [address] PCP - General NURSE PRACTITIONER 06/26/18 12/04/18 Charla Kruse MD [address] [place] [address] PCP - General FAMILY PRACTICE 12/05/18 documented as of this encounter
--- OUTSIDE RECORDS SUMMARY | 2025-03-24 17:56 | XMS_ITS | Clinical Summary ---
Author Organization [facility] Address [address] [place] [address] Phone Care Team Providers Care Embedded Firmware Engineer Name Role Phone Charla Kruse MD Primary [...] - 02/21/2025 1:10 PM CDT Hospital Encounter [facility] Adult Senior 3C [address] [place] [address] Bj Sahu MD Garcia Ferrer, Eduardo, MD Shemwell, Kathryn, MD MDD (major depressive disorder), recurrent severe, without psychosis (CMS/HCC) Discharge Disposition: Home or Self Care 02/11/2025 8:27 AM CDT - 02/11/2025 11:59 PM CDT Hospital Encounter [facility] [address] [place] [address] Dara Chapa MD [facility] Intake, Nurse Discharge Disposition: Home or [...] 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 Not on file Not [...] - 9.8 K/uL 02/12/2025 9:20 AM CDT [employer] [facility] RBC 5.11 4.50 - 5.40 M/uL 02/12/2025 9:20 AM CDT [employer] [facility] HEMOGLOBIN 14.7 13.6 - 16.5 g/dL 02/12/2025 9:20 AM CDT [employer] [facility] HEMATOCRIT 43.9 40.0 - 48.0 % 02/12/2025 9:20 AM CDT [employer] [facility] MCV 85.9 82.0 - 99.0 fL 02/12/2025 9:20 AM CDT [employer] [facility] MCH 28.8 27.2 - 32.6 pg 02/12/2025 9:20 AM CDT [employer] [facility] MCHC 33.5 31.5 - 35.5 g/dL 02/12/2025 9:20 AM CDT [employer] [facility] RDW 13.2 11.5 - 14.5 % 02/12/2025 9:20 AM CDT [employer] [facility] RDW-STDEV 41.3 37.1 - 48.7 fL 02/12/2025 9:20 AM CDT [employer] [facility] PLATELETS 394(H) 140 - 350 K/uL 02/12/2025 9:20 AM CDT [employer] [facility] MPV 9.6 9.3 - 12.4 fL 02/12/2025 9:20 AM CDT [employer] [facility] - [facility] NEUTROPHILS 39 % 02/12/2025 9:20 AM CDT [employer] [facility] - . [facility] LYMPHOCYTES 48 % 02/12/2025 9:20 AM CDT [employer] [facility] MONOCYTES 7 % 02/12/2025 9:20 AM CDT [employer] [facility] - [facility] EOSINOPHILS 5 % 02/12/2025 9:20 AM CDT [facility] SERVICES - [facility] BASOPHILS 2 % 02/12/2025 9:20 AM CDT [facility] - [facility] IMMATURE GRANULOCYTES 0 % 02/12/2025 9:20 AM CDT [facility] - [facility] NEUTROPHIL ABSOLUTE 2.10 1.90 - 7.00 K/uL 02/12/2025 9:20 AM CDT [facility] - [facility] LYMPHOCYTE ABSOLUTE 2.61 0.70 - 4.50 K/uL 02/12/2025 9:20 AM CDT [employer] [facility] MONOCYTE ABSOLUTE 0.38 0.10 - 1.30 K/uL 02/12/2025 9:20 AM CDT [facility] - [facility] EOSINOPHIL ABSOLUTE 0.25 0.00 - 0.70 K/uL 02/12/2025 9:20 AM CDT [employer] [facility] - [facility] BASOPHILS ABSOLUTE 0.08 0.00 - 0.20 K/uL 02/12/2025 9:20 AM CDT [employer] [facility] - [facility] IMMATURE GRANULOCYTES ABSOLUTE 0.01 0.00 - 0.03 K/uL 02/12/2025 9:20 AM CDT [facility] Blood Venipuncture / Unknown 02/12/2025 8:48 AM CDT 02/12/2025 8:53 AM CDT us Bj Sahu MD HEMATOLOGY ORDERABLES Final Resu lt [facility] [employer] [facility] CLIA# [id number] [address] [place] [address] * TSH (02/12/2025 8:48 AM CDT) TSH 2.07 0.27 - 4.20 uIU/mL 02/12/2025 9:41 AM CDT [facility] Blood Venipuncture / Unknown 02/12/2025 8:48 AM CDT 02/12/2025 8:53 AM CDT Bj Sahu MD CHEMISTRY ORDERABLES Final Resul t Performing Organization Address [facility] Co de Phone Number [facility] [employer] [facility] [id number] [address] [place] [address] * HEMOGLOBIN A1C (02/12/2025 8:48 AM CDT) HEMOGLOBIN A1C 5.6 <5.7 % 02/12/2025 9:57 AM CDT [employer] [facility] EST. AVG GLUCOSE, A1C 114 mg/dL 02/12/2025 9:57 AM CDT [employer] [facility] Blood Venipuncture / Unknown 02/12/2025 8:48 AM CDT 02/12/2025 8:53 AM CDT Narrative [employer] [facility] - 02/12/2025 9:57 AM CDT HGB A1C INTERPRETATION NORMAL: <5.7% PRE-DIABETES: 5.7 - 6.4% DIABETES: 6.5% OR GREATER Bj Sahu MD CHEMISTRY ORDERABLES Final Resul t Performing Organization Address [facility] Co de Phone Number [facility] [employer] [facility]# [id number] [address] [place] [address] * (ABNORMAL) LIPID PANEL (02/12/2025 8:48 AM CDT) CHOLESTEROL 253(H) <200 mg/dL 02/12/2025 9:41 AM CDT [employer] [facility] TRIGLYCERIDE 260(H) <150 mg/dL 02/12/2025 9:41 AM CDT [employer] [facility] HDL 47 40 - 59 mg/dL 02/12/2025 9:41 AM CDT [employer] [facility] LDL CALCULATED 154(H) <100 mg/dL 02/12/2025 9:41 AM CDT [employer] [facility] NON-HDL CHOLESTEROL 206(H) <130 mg/dL 02/12/2025 9:41 AM T [facility] [employer] [facility] Blood Venipuncture / Unknown 02/12/2025 8:48 AM CDT 02/12/2025 8:53 AM CDT [facility] LABORATORY SERVICES - [facility] - 02/12/2025 9:41 AM CDT TOTAL CHOLESTEROL [...] Sahu MD CHEMISTRY ORDERABLES Final Resul t [facility] [employer] [facility]# [id number] [address] [facility] [place] [address] * (ABNORMAL) COMPREHENSIVE METABOLIC PANEL (02/12/2025 8:48 AM CDT) SODIUM 139 136 - 145 mmol/L 02/12/2025 9:41 AM T [facility] POTASSIUM 4.2 3.5 - 5.0 mmol/L 02/12/2025 9:41 AM T [facility] LABORATORY SERVICES - . [facility] CHLORIDE 103 98 - 107 mmol/L 02/12/2025 9:41 AM T [facility]ORY SERVICES - . [facility] CO2 24 22 - 29 mmol/L 02/12/2025 9:41 AM [facility] [employer] [facility] CALCIUM 9.5 8.6 - 10.2 mg/dL 02/12/2025 9:41 AM [facility] [employer] [facility] - . [facility] BUN 14 6 - 20 mg/dL 02/12/2025 9:41 AM [facility] - . [facility] CREATININE 0.96 0.67 - 1.17 mg/dL 02/12/2025 9:41 AM [facility] [employer] LABORATORY [facility] GLUCOSE 115(H) 74 - 99 mg/dL 02/12/2025 9:41 AM [facility] - . [facility] TOTAL PROTEIN 6.9 6.7 - 8.6 g/dL 02/12/2025 9:41 AM [facility] ALBUMIN 4.4 3.5 - 5.2 g/dL 02/12/2025 9:41 AM [facility] [employer] [facility] BILIRUBIN TOTAL 0.4 0.0 - 1.2 mg/dL 02/12/2025 9:41 AM [facility] [employer] [facility] ALKALINE PHOSPHATASE 78 40 - 129 U/L 02/12/2025 9:41 AM [facility] [employer] [facility] AST 33 <41 U/L 02/12/2025 9:41 AM [facility] ALT 30 <42 U/L 02/12/2025 9:41 AM [facility] GFR >60 >=60 mL/min/1.7 3 sq meter 02/12/2025 9:41 AM [facility] [employer] [facility] Comment:eGFR calculated with 2020 CKD-EPI equation. Vegetarian diet, extremely high or low muscle mass, and may affect results. Cystatin C with Glomerular Filtration Rate is a suitable alternative for these patients. ANION GAP 12 8 - 16 mmol/L 02/12/2025 9:41 AM [facility] [employer] [facility] Blood Venipuncture / Unknown 02/12/2025 8:48 AM T 02/12/2025 8:53 AM [facility] [employer] [facility] SERVICES [facility] - 02/12/2025 9:41 AM CDT Samples containing indocyanine green cause interferences on Total and/or Direct Bilirubin and must not be measured. Bj Sahu MD CHEMISTRY ORDERABLES Final Resul t [facility] LABORATORY SERVICES [facility]# [id number] [address] [place] [address] * DRUG SCREEN, URINE (02/11/2025 6:31 PM CDT) [facility] [address] AMPHETAMINE QUAL, URINE Negative Negative 02/11/2025 7:33 PM CDT [facility] LABORATORY [facility] BARBITURATE QUAL, URINE Negative Negative 02/11/2025 7:33 PM CDT [facility] LABORATORY [facility] BENZODIAZEPINE QUAL, URINE Negative Negative 02/11/2025 7:33 PM CDT [facility] LABORATORY [facility] COCAINE QUAL URINE Negative Negative 2024 7:33 PM CDT [facility] LABORATORY [facility] OPIATE QUAL, URINE Negative Negative 2024 7:33 PM CDT [facility] LABORATORY [facility] CANNABINOIDS QUAL, URINE Negative Negative 02/11/2025 7:33 PM CDT [facility] LABORATORY [facility] PCP QUAL, URINE Negative Negative 7:33 PM CDT [facility] LABORATORY [facility] OXYCODONE QUAL, URINE Negative Negative 02/11/2025 7:33 PM CDT [facility] LABORATORY [facility] METHADONE QUAL, URINE Negative Negative 02/11/2025 7:33 PM CDT [facility] LABORATORY [facility] FENTANYL QUAL, URINE Negative Negative 02/11/2025 7:33 PM CDT [facility] LABORATORY [facility] CREATININE, URINE 129.0 40.0 - 278.0 mg/dL 02/11/2025 7:33 PM T [facility] LABORATORY SERVICES [facility] Comment:Reference Range vari es with fluid intake and diet. Urine URINE SPECIMEN OBTAINED BY CLEAN CATCH PROCEDURE / Unknown Collection / Unknown 02/11/2025 6:31 PM CDT 02/11/2025 6:39 PM CDT [facility] LABORATORY [facility] - 02/11/2025 7:33 PM CDT This [...] Bj Sahu MD URINE ORDERABLES Final Result [facility] LABORATORY [facility] CLIA# [id number] [address] [place] [address] from Last 3 Months Insurance RX [employer] RX Member Subscriber Plan / Payer (Ef fective for All Dates) Name:Jose Munson Relation to Subscriber:Self Name:MetzJose Grant Subscriber ID:Not on file Payer ID:Not on file Type:RX Commercial Address: [address] [place] BCBS BLUE ACCESS/TRUE BLUE PPO Advance Directives For more information, please contact: [phone] * Full Code (Latest Code Status on File) Date Activated Date Inactivated Comments 02/11/2025 3:19 PM 02/21/2025 4:26 PM * Full Code Date Activated Date Inactivated Comments 04/04/2024 8:12 PM 04/12/2024 5:22 PM * Full Code Date Activated Date Inactivated Comments 08/15/2018 10:09 AM 08/15/2018 2:31 PM * Full Code Date Activated Date Inactivated Comments 02/19/2018 1:15 AM 02/20/2018 5:24 PM Care Teams Embedded Firmware Engineer Relationship Specialty Start Date End Date Charla Kruse MD [address] [place] [id number] PCP - General Family Practice 11/06/18
--- OUTSIDE RECORDS SUMMARY | 2025-03-24 17:56 | XMS_ITS | Data Portability ---
Author Organization [place] [facility] [employer], Main Office Address [address] [place] [address] Assessment No assessment recorded. Plan of Treatment Reminders Order Date Submit Date Provider Last Modified By Organization Details Last Modified Time Details Appointments None recorded. Lab vitamin D, 25-hydrox y, total, serum [address] [facility] (Lab), [address] [place], [address], 3 03:07:56 CBC w/ auto diff 023 [facility] (Lab), [address] [place], [address], 3 03:07:50 CMP, serum or plasma [address] [facility] (Lab), [address] [place], [address], 3 03:07:52 TSH, serum or plasma 023 023 [email or web address] [facility] (Lab), [address] [place], [address], 3 13:38:43 glycohemo globin, total, blood 023 023 [email or web address] [facility] (Lab), [address] [place], [address], 3 13:38:43 lipid panel, serum 023 [facility] (Lab), [address] [place], [address], 03:07:53 vitamin B12 + folate, serum or blood [address] [facility] (Lab), [address] [facility] [place], [address], 3 03:07:54 Referral None recorded. Procedures None recorded. Surgeries None recorded. Imaging None recorded. Medication Orders None recorded. Patient TargetsNo targets recorded. Patient InstructionsNo instructions recorded. Reason for Referral None Reported. Results Created Date Observation Date Name Description Value Unit Range Abnormal Flag Note LastModifiedBy Organization Detail LastModifiedTime 09/30/19 22 10/01/2021 TSH TSH 2.680 uIU/m L 0.450- 4.500 Not Available Not Available 10/01/2021 05:10:45 09/30/19 22 10/01/2021 THYRO XINE (T4) FREE, DIREC T T4,free(dire ct) 1.14 NG/dL 0.82-1 .77 Not Available [facility] ([facility]) [address] [facility], [place], [address], 10/01/2021 05:10:45 09/30/19 22 10/01/2021 HEMOG LOBIN A1C hemoglobin A1C 5.7 % 4.8-5. 6 above high normal Predi abete s: 5.7 - 6.4 Diabe manoj: >6.4 Glyce stefano contr ol for adult s with diabe manoj: <7.0 Not Available Not Available 10/01/2021 05:10:45 09/30/19 22 10/01/2021 LIPID PANEL cholesterol, total 222 mg/dL 100-19 9 above high normal Not Available [facility] ([facility]) [address] [facility], [place], [address], 10/01/2021 05:10:44 09/30/19 22 10/01/2021 LIPID PANEL triglyceride s 306 mg/dL 0-149 above high normal Not Available [facility] ([facility]) [address] [place] [place], [address], 10/01/2021 05:10:44 09/30/19 22 10/01/2021 LIPID PANEL HDL cholesterol 48 mg/dL >39 Not Available [facility] ([facility]) [address] [place] [place], [address], 10/01/2021 05:10:44 09/30/19 22 10/01/2021 LIPID PANEL VLDL cholesterol william 54 mg/dL 5-40 above high normal Not Available [facility] ([facility]) [address] [place] [place], [address], 10/01/2021 05:10:44 09/30/19 22 10/01/2021 LIPID PANEL LDL chol calc ([facility]) 120 mg/dL 0-99 above high normal Not Available [facility] ([facility]) [address] [place], [address], 10/01/2021 05:10:44 09/30/19 22 10/01/2021 LIPID PANEL comment: receiving associate Not Available [facility] ([facility]) [address] [place], [address], 10/01/2021 05:10:44 09/30/19 22 10/01/2021 COMP. METAB OLIC PANEL (14) glucose 89 mg/dL 65-99 Not Available [facility] ([facility]) [address] [place], [address], 10/01/2021 05:10:44 09/30/19 22 10/01/2021 COMP. METAB OLIC PANEL (14) BUN 14 mg/dL 6-20 Not Available [facility] ([facility]) [address] [place], [address], 10/01/2021 05:10:44 09/30/19 22 10/01/2021 COMP. METAB OLIC PANEL (14) creatinine 1.00 mg/dL 0.76-1 .27 Not Available [facility] ([facility]) [address] [facility], [place], [address], 10/01/2021 05:10:44 09/30/19 22 10/01/2021 COMP. METAB OLIC PANEL (14) eGFR if nonafricn AM 99 mL/mi n/1.7 3 >59 Not Available [facility] ([facility]) [address] [facility], [place], [address], 10/01/2021 05:10:44 09/30/19 22 10/01/2021 COMP. METAB OLIC PANEL (14) eGFR if africn AM 115 mL/mi n/1.7 3 >59 In accor dance with recom menda tielio from the NKF-A SN Task force , [facility] is in the proce ss of updat ing its eGFR calcu latio n to the 2020 CKD-E PI creat inine equat ion that estim ates kidne y funct ion witho ut a race varia ble. Not Available [facility] ([facility]) [address] [facility], [place], [address], 10/01/2021 05:10:44 09/30/19 22 10/01/2021 COMP. METAB OLIC PANEL (14) BUN/creatini ne ratio 14 9-20 Not Available [facility] ([facility]) [address] [facility], [place], [address], 10/01/2021 05:10:44 09/30/19 22 10/01/2021 COMP. METAB OLIC PANEL (14) sodium 137 mmol/ L 134-14 4 Not Available [facility] ([facility]) [address] [place], [address], 10/01/2021 05:10:44 09/30/19 22 10/01/2021 COMP. METAB OLIC PANEL (14) potassium 4.5 mmol/ L 3.5-5. 2 Not Available [facility] ([facility]) [address] [place], [address], 10/01/2021 05:10:44 09/30/19 22 10/01/2021 COMP. METAB OLIC PANEL (14) chloride 98 mmol/ L 96-106 Not Available [facility] ([facility]) [address] [place], [address], 10/01/2021 05:10:44 09/30/19 22 10/01/2021 COMP. METAB OLIC PANEL (14) carbon dioxide, total 25 mmol/ L 20-29 Not Available [facility] ([facility]) [address] [place], [address], 10/01/2021 05:10:44 09/30/19 22 10/01/2021 COMP. METAB OLIC PANEL (14) calcium 9.8 mg/dL 8.7-10 .2 Not Available [facility] ([facility]) [address] [place], [address], 10/01/2021 05:10:44 09/30/19 22 10/01/2021 COMP. METAB OLIC PANEL (14) protein, total 7.3 g/dL 6.0-8. 5 Not Available [facility] ([facility]) [address] [place], [address], 10/01/2021 05:10:44 09/30/19 22 10/01/2021 COMP. METAB OLIC PANEL (14) albumin 4.9 g/dL 4.0-5. 0 Not Available [facility] ([facility]) [address] [place], [address], 10/01/2021 05:10:44 09/30/19 22 10/01/2021 COMP. METAB OLIC PANEL (14) globulin, total 2.4 g/dL 1.5-4. 5 Not Available [facility] ([facility]) [address] [place], [address], 10/01/2021 05:10:44 09/30/19 22 10/01/2021 COMP. METAB OLIC PANEL (14) A/G ratio 2.0 1.2-2. 2 Not Available [facility] ([facility]) [address] [facility], [place], [address], 10/01/2021 05:10:44 09/30/19 22 10/01/2021 COMP. METAB OLIC PANEL (14) bilirubin, total <0.2 mg/dL 0.0-1. 2 Not Available [facility] ([facility]) [address] [place], [address], 10/01/2021 05:10:44 09/30/19 22 10/01/2021 COMP. METAB OLIC PANEL (14) alkaline phosphatase 79 IU/L 44-121 Not Available [facility] ([facility]) [address] [facility], [place], [address], 10/01/2021 05:10:44 09/30/19 22 10/01/2021 COMP. METAB OLIC PANEL (14) AST (SGOT) 36 IU/L 0-40 Not Available [facility] ([facility]) [address] [place], [address], 10/01/2021 05:10:44 09/30/19 22 10/01/2021 COMP. METAB OLIC PANEL (14) ALT (SGPT) 35 IU/L 0-44 Not Available [facility] ([facility]) [address] [place], [address], 10/01/2021 05:10:44 09/30/19 22 10/01/2021 CBC/D IFF AMBIG UOUS DEFAU LT WBC 8.3 x10e3 /uL 3.4-10 .8 Not Available [facility] ([facility]) [address] [place], [address], 10/01/2021 05:10:43 09/30/19 22 10/01/2021 CBC/D IFF AMBIG UOUS DEFAU LT RBC 5.12 x10e6 /uL 4.14-5 .80 Not Available [facility] ([facility]) [address] [facility], [place], [address], 10/01/2021 05:10:43 09/30/19 22 10/01/2021 CBC/D IFF AMBIG UOUS DEFAU LT hemoglobin 14.7 g/dL 13.0-1 7.7 Not Available [facility] ([facility]) [address] [facility], [place], [address], 10/01/2021 05:10:43 09/30/19 22 10/01/2021 CBC/D IFF AMBIG UOUS DEFAU LT hematocrit 43.2 % 37.5-5 1.0 Not Available [facility] ([facility]) [address] [facility], [place], [address], 10/01/2021 05:10:43 09/30/19 22 10/01/2021 CBC/D IFF AMBIG UOUS DEFAU LT MCV 84 fL 79-97 Not Available [facility] ([facility]) [address] [place], [address], 10/01/2021 05:10:43 09/30/19 22 10/01/2021 CBC/D IFF AMBIG UOUS DEFAU LT MCH 28.7 pg 26.6-3 3.0 Not Available [facility] ([facility]) [address] [place], [address], 10/01/2021 05:10:43 09/30/19 22 10/01/2021 CBC/D IFF AMBIG UOUS DEFAU LT MCHC 34.0 g/dL 31.5-3 5.7 Not Available [facility] ([facility]) [address] [place], [address], 10/01/2021 05:10:43 09/30/19 22 10/01/2021 CBC/D IFF AMBIG UOUS DEFAU LT RDW 13.0 % 11.6-1 5.4 Not Available [facility] ([facility]) [address] [facility], [place], [address], 10/01/2021 05:10:43 09/30/19 22 10/01/2021 CBC/D IFF AMBIG UOUS DEFAU LT platelets 441 x10e3 /uL 150-45 0 Not Available [facility] ([facility]) [address] [facility], [place], [address], 10/01/2021 05:10:43 09/30/19 22 10/01/2021 CBC/D IFF AMBIG UOUS DEFAU LT neutrophils 50 % not estab. Not Available [facility] ([facility]) [address] [facility], [place], [address], 10/01/2021 05:10:43 09/30/19 22 10/01/2021 CBC/D IFF AMBIG UOUS DEFAU LT lymphs 35 % not estab. Not Available [facility] ([facility]) [address] [facility], [place], [address], 10/01/2021 05:10:43 09/30/19 22 10/01/2021 CBC/D IFF AMBIG UOUS DEFAU LT monocytes 11 % not estab. Not Available [facility] ([facility]) [address] [facility], [place], [address], 10/01/2021 05:10:43 09/30/19 22 10/01/2021 CBC/D IFF AMBIG UOUS DEFAU LT eos 2 % not estab. Not Available [facility] ([facility]) [address] [facility], [place], [address], 10/01/2021 05:10:43 09/30/19 22 10/01/2021 CBC/D IFF AMBIG UOUS DEFAU LT basos 1 % not estab. Not Available [facility] ([facility]) [address] [place], [address], 10/01/2021 05:10:43 09/30/19 22 10/01/2021 CBC/D IFF AMBIG UOUS DEFAU LT immature cells receiving associate Not Available [facility] ([facility]) [address] [facility], [place], [address], 10/01/2021 05:10:43 09/30/19 22 10/01/2021 CBC/D IFF AMBIG UOUS DEFAU LT neutrophils (absolute) 4.2 x10e3 /uL 1.4-7. 0 Not Available [facility] ([facility]) [address] [facility], [place], [address], 10/01/2021 05:10:43 09/30/19 22 10/01/2021 CBC/D IFF AMBIG UOUS DEFAU LT lymphs (absolute) 2.9 x10e3 /uL 0.7-3. 1 Not Available [facility] ([facility]) [address] [place], [address], 10/01/2021 05:10:43 09/30/19 22 10/01/2021 CBC/D IFF AMBIG UOUS DEFAU LT monocytes(ab solute) 0.9 x10e3 /uL 0.1-0. 9 Not Available [facility] ([facility]) [address] [place], [address], 10/01/2021 05:10:43 09/30/19 22 10/01/2021 CBC/D IFF AMBIG UOUS DEFAU LT eos (absolute) 0.1 x10e3 /uL 0.0-0. 4 Not Available [facility] ([facility]) [address] [place], [address], 10/01/2021 05:10:43 09/30/19 22 10/01/2021 CBC/D IFF AMBIG UOUS DEFAU LT baso (absolute) 0.1 x10e3 /uL 0.0-0. 2 Not Available [facility] ([facility]) [address] [place], [address], 10/01/2021 05:10:43 09/30/19 22 10/01/2021 CBC/D IFF AMBIG UOUS DEFAU LT immature granulocytes 1 % not estab. Not Available [facility] ([facility]) [address] [place], [address], 10/01/2021 05:10:43 09/30/19 22 10/01/2021 CBC/D IFF AMBIG UOUS DEFAU LT immature grans (abs) 0.1 x10e3 /uL 0.0-0. 1 Not Available [facility] ([facility]) [address] [facility], [place], [address], 10/01/2021 05:10:43 09/30/19 22 10/01/2021 CBC/D IFF AMBIG UOUS DEFAU LT NRBC receiving associate Not Available [facility] ([facility]) [address] [place], [address], 10/01/2021 05:10:43 09/30/19 22 10/01/2021 CBC/D IFF AMBIG UOUS DEFAU LT hematology comments: receiving associate A hand- writt en panel /prof nneka was recei jesse from your offic e. In accor dance with the [facility] Ambig uous Test Code Polic y dated March 2003, we have assig destiny CBC with Lesli vides/Akiko nogueira, Test Code #[address]. If this is not the testi ng you wishe d to recei ve on this speci men, pleas e conta ct the [facility] Flora t Inqui ry/ Techn ical Servi kaushik Depar tment to lashay fy the test order . We appre ciate your busin ess. Not Available [facility] ([facility]) [address] [facility], [place], [address], 10/01/2021 05:10:43 04/21/20 22 04/21/2022 urina lysis , dipst ick Leukocytes (reference range: negative pedro/ l) Negati ve Not Available [place] [address], [place], [address], 04/21/2022 08:20:05 04/21/20 22 04/21/2022 urina lysis , dipst ick Nitrite (reference rage: negative mg/dl) negati ve Not Available [place] [address], [place], [address], 04/21/2022 08:20:05 04/21/20 22 04/21/2022 urina lysis , dipst ick Urobilinogen (reference range: 0.2-1 mg/dl) 0.2 Not Available [place] [address], [place], [address], 04/21/2022 08:20:05 04/21/20 22 04/21/2022 urina lysis , dipst ick Protein (reference range: negative mg/dl) Negati ve Not Available [place] [address], [place], [address], 04/21/2022 08:20:05 04/21/20 22 04/21/2022 urina lysis , dipst ick pH (reference range: 5-7) 6.0 Not Available [place] [address], [place], [address], 04/21/2022 08:20:05 04/21/20 22 04/21/2022 urina lysis , dipst ick Blood (reference range: negative Luis/ l) Negati ve Not Available [place] [address], [place], [address], 04/21/2022 08:20:05 04/21/20 22 04/21/2022 urina lysis , dipst ick Specific [place] (reference range: 1.005-1.030) 1.030 Not Available [place] [address], [place], [address], 04/21/2022 08:20:05 04/21/20 22 04/21/2022 urina lysis , dipst ick Ketone (reference range: negative mg/dl) Negati ve Not Available [place] [address], [place], [address], 04/21/2022 08:20:05 04/21/20 22 04/21/2022 urina lysis , dipst ick Bilirubin (reference range: negative mg/dl) Negati ve Not Available [place] [address], [place], [address], 04/21/2022 08:20:05 04/21/20 22 04/21/2022 urina lysis , dipst ick Glucose (reference range: negative mg/dl) Negati ve Not Available [place] [address], [place], [address], 04/21/2022 08:20:05 04/21/20 22 04/21/2022 urina lysis , dipst ick Appearance Clear Not Available [place] [address], [place], [address], 04/21/2022 08:20:05 04/21/20 22 04/21/2022 urina lysis , dipst ick Color Yellow Not Available [place] [address], [place], [address], 04/21/2022 08:20:05 07/14/20 22 07/14/2022 SARS- COV-2 (COVI D-19) ANTIG EN sars-cov-2 (covid-19) antigen non reacti ve non-re active This test has been autho rized by the FDA under an Emerg ency Use Autho rizat ion (EUA) for use by autho rized labor atori es. This test is only for the detec tion of SARS- CoV-2 antig en, not for any other virus es or patho gens. Negat cheli resul ts from patie nts with sympt om onset outsi de of one to six days shoul d be treat ed as presu mptiv e. Negat cheli resul ts do not rule out SARS- CoV-2 infec tion and shoul d not be used as the sole basis of treat ment or patie nt manag ement decis ions, inclu ding infec tion contr ol decis ions. Negat cheli resul ts shoul d be consi dered in the alejandra xt of a patie nt's recen t expos ures, histo ry and the prese nce of clini william signs and sympt oms consi stent with COVID -19. The VITRO S Immun odiag nosti cs Produ cts SARS- CoV-2 Antig en Lette r of Autho rizat ion, along with the autho rized Fact Sheet for Healt hcare Provi ders, the autho rized Fact Sheet for Recip ients , and autho rized label ing are avail able on the FDA Websi te: https ://ww w.fda .gov/ medic al-de vices /sharron navir us-di sease -2019 -covi d-19- emerg ency- use-a joan ballard-m edica l-dev ices/ vitro -diag nosti cs-eu as# indiv idual -sero logic al Not Available [facility] ([facility]) [address] [place], [address], 07/14/2022 10:57:44 07/14/2007/14/2022 SARS- COV-2 (COVI D-19) ANTIG EN signal to cutoff ratio 0.27 0.00-0 .99 Not Available [facility] (Lab) [address] [facility] [place], [address], 07/14/2022 10:57:44 07/20/20 22 07/20/2022 rapid flu (A+B) Flu A positi ve Not Available [address] [place], [address], 07/20/2022 12:50:54 07/20/2007/20/2022 rapid flu (A+B) Flu B positi ve Not Available [address] , [place], [address], 07/20/2022 12:50:54 07/05/2007/06/2023 CBC WITH DIFFE RENTI AL/PL ATELE T WBC 5.9 x10e3 /uL 3.4-10 .8 Not Available [facility] ([facility]) [address] [place], [address], 07/07/2023 03:07:50 07/05/2007/06/2023 CBC WITH DIFFE RENTI AL/PL ATELE T RBC 5.01 x10e6 /uL 4.14-5 .80 Not Available [facility] ([facility]) [address] [place], [address], 07/07/2023 03:07:50 07/05/2007/06/2023 CBC WITH DIFFE RENTI AL/PL ATELE T hemoglobin 14.7 g/dL 13.0-1 7.7 Not Available [facility] ([facility]) [address] [place], [address], 07/07/2023 03:07:50 07/05/2007/06/2023 CBC WITH DIFFE RENTI AL/PL ATELE T hematocrit 41.8 % 37.5-5 1.0 Not Available [facility] ([facility]) [address] [facility], [place], [address], 07/07/2023 03:07:50 07/05/2007/06/2023 CBC WITH DIFFE RENTI AL/PL ATELE T MCV 83 fL 79-97 Not Available [facility] ([facility]) [address] [facility], [place], [address], 07/07/2023 03:07:50 07/05/2007/06/2023 CBC WITH DIFFE RENTI AL/PL ATELE T MCH 29.3 pg 26.6-3 3.0 Not Available [facility] ([facility]) [address] [facility], [place], [address], 07/07/2023 03:07:50 07/05/2007/06/2023 CBC WITH DIFFE RENTI AL/PL ATELE T MCHC 35.2 g/dL 31.5-3 5.7 Not Available [facility] ([facility]) [address] [facility], [place], [address], 07/07/2023 03:07:50 07/05/2007/06/2023 CBC WITH DIFFE RENTI AL/PL ATELE T RDW 12.8 % 11.6-1 5.4 Not Available [facility] ([facility]) [address] [place], [address], 07/07/2023 03:07:50 07/05/2007/06/2023 CBC WITH DIFFE RENTI AL/PL ATELE T platelets 370 x10e3 /uL 150-45 0 Not Available [facility] ([facility]) [address] [place], [address], 07/07/2023 03:07:50 07/05/2007/06/2023 CBC WITH DIFFE RENTI AL/PL ATELE T neutrophils 46 % not estab. Not Available [facility] ([facility]) [address] [place], [address], 07/07/2023 03:07:50 07/05/20 23 07/06/2023 CBC WITH DIFFE RENTI AL/PL ATELE T lymphs 37 % not estab. Not Available [facility] ([facility]) [address] [facility], [place], [address], 07/07/2023 03:07:50 07/05/20 23 07/06/2023 CBC WITH DIFFE RENTI AL/PL ATELE T monocytes 13 % not estab. Not Available [facility] ([facility]) [address] [facility], [place], [address], 07/07/2023 03:07:50 07/05/2007/06/2023 CBC WITH DIFFE RENTI AL/PL ATELE T eos 3 % not estab. Not Available [facility] ([facility]) [address] [facility], [place], [address], 07/07/2023 03:07:50 07/05/2007/06/2023 CBC WITH DIFFE RENTI AL/PL ATELE T basos 1 % not estab. Not Available [facility] ([facility]) [address] [place], [address], 07/07/2023 03:07:50 07/05/2007/06/2023 CBC WITH DIFFE RENTI AL/PL ATELE T immature cells NAIL PROFESSIONAL Not Available [facility] ([facility]) [address] [place], [address], 07/07/2023 03:07:50 07/05/2007/06/2023 CBC WITH DIFFE RENTI AL/PL ATELE T neutrophils (absolute) 2.7 x10e3 /uL 1.4-7. 0 Not Available [facility] ([facility]) [address] [place], [address], 07/07/2023 03:07:50 07/05/20 23 07/06/2023 CBC WITH DIFFE RENTI AL/PL ATELE T lymphs (absolute) 2.2 x10e3 /uL 0.7-3. 1 Not Available [facility] ([facility]) [address] [facility], [place], [address], 07/07/2023 03:07:50 07/05/2007/06/2023 CBC WITH DIFFE RENTI AL/PL ATELE T monocytes(ab solute) 0.8 x10e3 /uL 0.1-0. 9 Not Available [facility] ([facility]) [address] [facility], [place], [address], 07/07/2023 03:07:50 07/05/20 23 07/06/2023 CBC WITH DIFFE RENTI AL/PL ATELE T eos (absolute) 0.2 x10e3 /uL 0.0-0. 4 Not Available [facility] ([facility]) [address] [facility], [place], [address], 07/07/2023 03:07:50 07/05/20 23 07/06/2023 CBC WITH DIFFE RENTI AL/PL ATELE T baso (absolute) 0.1 x10e3 /uL 0.0-0. 2 Not Available [facility] ([facility]) [address] [facility], [place], [address], 07/07/2023 03:07:50 07/05/20 23 07/06/2023 CBC WITH DIFFE RENTI AL/PL ATELE T immature granulocytes 0 % not estab. Not Available [facility] ([facility]) [address] [facility], [place], [address], 07/07/2023 03:07:50 07/05/20 23 07/06/2023 CBC WITH DIFFE RENTI AL/PL ATELE T immature grans (abs) 0.0 x10e3 /uL 0.0-0. 1 Not Available [facility] ([facility]) [address], [place], [address], 07/07/2023 03:07:50 07/05/20 23 07/06/2023 CBC WITH DIFFE RENTI AL/PL ATELE T NRBC NAIL PROFESSIONAL Not Available [facility] ([facility]) [address], [place], [address], 07/07/2023 03:07:50 07/05/2007/06/2023 CBC WITH DIFFE RENTI AL/PL ATELE T hematology comments: NAIL PROFESSIONAL Not Available [facility] ([facility]) [address], [place], [address], 07/07/2023 03:07:50 07/05/2007/06/2023 COMP. METAB OLIC PANEL (14) glucose 99 mg/dL 70-99 Not Available [facility] ([facility]) [address] [facility], [place], [address], 07/07/2023 03:07:52 07/05/2007/06/2023 COMP. METAB OLIC PANEL (14) BUN 13 mg/dL 6-20 Not Available [facility] ([facility]) [address] [place], [address], 07/07/2023 03:07:52 07/05/2007/06/2023 COMP. METAB OLIC PANEL (14) creatinine 0.93 mg/dL 0.76-1 .27 Not Available [facility] ([facility]) [address] [place], [address], 07/07/2023 03:07:52 07/05/2007/06/2023 COMP. METAB OLIC PANEL (14) eGFR 111 mL/mi n/1.7 3 >59 Not Available [facility] ([facility]) [address] [place], [address], 07/07/2023 03:07:52 07/05/20 23 07/06/2023 COMP. METAB OLIC PANEL (14) BUN/creatini ne ratio 14 9-20 Not Available [facility] ([facility]) [address] [facility], [place], [address], 07/07/2023 03:07:52 07/05/20 23 07/06/2023 COMP. METAB OLIC PANEL (14) sodium 139 mmol/ L 134-14 4 Not Available [facility] ([facility]) [address] [facility], [place], [address], 07/07/2023 03:07:52 07/05/2007/06/2023 COMP. METAB OLIC PANEL (14) potassium 4.8 mmol/ L 3.5-5. 2 Not Available [facility] ([facility]) [address] [place], [address], 07/07/2023 03:07:52 07/05/2007/06/2023 COMP. METAB OLIC PANEL (14) chloride 101 mmol/ L 96-106 Not Available [facility] ([facility]) [address] [place], [address], 07/07/2023 03:07:52 07/05/20 23 07/06/2023 COMP. METAB OLIC PANEL (14) carbon dioxide, total 23 mmol/ L 20-29 Not Available [facility] [facility] [address] [place], [address], 07/07/2023 03:07:52 07/05/2007/06/2023 COMP. METAB OLIC PANEL (14) calcium 9.7 mg/dL 8.7-10 .2 Not Available [facility] ([facility]) [address] [place], [address], 07/07/2023 03:07:52 07/05/20 23 07/06/2023 COMP. METAB OLIC PANEL (14) protein, total 7.0 g/dL 6.0-8. 5 Not Available [facility] ([facility]) [address] [place], [address], 07/07/2023 03:07:52 07/05/20 23 07/06/2023 COMP. METAB OLIC PANEL (14) albumin 4.7 g/dL 4.1-5. 1 Not Available [facility] ([facility]) [address] [place], [address], 07/07/2023 03:07:52 07/05/2007/06/2023 COMP. METAB OLIC PANEL (14) globulin, total 2.3 g/dL 1.5-4. 5 Not Available [facility] ([facility]) [address] [place], [address], 07/07/2023 03:07:52 07/05/20 23 07/06/2023 COMP. METAB OLIC PANEL (14) A/G ratio 2.0 1.2-2. 2 Not Available [facility] ([facility]) [address] [place], [address], 07/07/2023 03:07:52 07/05/20 23 07/06/2023 COMP. METAB OLIC PANEL (14) bilirubin, total <0.2 mg/dL 0.0-1. 2 Not Available [facility] ([facility]) [address] [place], [address], 07/07/2023 03:07:52 07/05/20 23 07/06/2023 COMP. METAB OLIC PANEL (14) alkaline phosphatase 86 IU/L 44-121 Not Available [facility] ([facility]) [address] [place], [address], 07/07/2023 03:07:52 07/05/20 23 07/06/2023 COMP. METAB OLIC PANEL (14) AST (SGOT) 28 IU/L 0-40 Not Available [facility] ([facility]) [address] [facility], [place], [address], 07/07/2023 03:07:52 07/05/2007/06/2023 COMP. METAB OLIC PANEL (14) ALT (SGPT) 26 IU/L 0-44 Not Available [facility] ([facility]) [address] [facility], [place], [address], 07/07/2023 03:07:52 07/05/2007/06/2023 LIPID PANEL cholesterol, total 194 mg/dL 100-19 9 Not Available [facility] ([facility]) [address] [place], [address], 07/07/2023 03:07:53 07/05/2007/06/2023 LIPID PANEL triglyceride s 173 mg/dL 0-149 above high normal Not Available [facility] ([facility]) [address] [place], [address], 07/07/2023 03:07:53 07/05/2007/06/2023 LIPID PANEL HDL cholesterol 41 mg/dL >39 Not Available [facility] ([facility]) [address] [facility], [place], [address], 07/07/2023 03:07:53 07/05/2007/06/2023 LIPID PANEL VLDL cholesterol william 31 mg/dL 5-40 Not Available [facility] ([facility]) [address] [place], [address], 07/07/2023 03:07:53 07/05/2007/06/2023 LIPID PANEL LDL chol calc ([facility]) 122 mg/dL 0-99 above high normal Not Available [facility] ([facility]) [address] [place], [address], 07/07/2023 03:07:53 07/05/2007/06/2023 LIPID PANEL comment: NAIL PROFESSIONAL Not Available [facility] ([facility]) [address] [facility], [place], [address], 07/07/2023 03:07:53 07/05/2007/07/2023 VITAM IN B12 AND FOLAT E vitamin B12 468 pg/mL 232-12 45 Not Available [facility] ([facility]) [address] [facility], [place], [address], 07/07/2023 03:07:54 07/05/2007/07/2023 VITAM IN B12 AND FOLAT E folate (folic acid), serum 8.6 NG/mL >3.0 A serum folat e mikhail ntrat ion of less than 3.1 ng/mL is consi dered to repre sent clini william defic iency . Not Available [facility] ([facility]) [address] [facility], [place], [address], 07/07/2023 03:07:54 07/05/2007/06/2023 HEMOG LOBIN A1C hemoglobin A1C 5.8 % 4.8-5. 6 above high normal Predi abete s: 5.7 - 6.4 Diabe manoj: >6.4 Glyce stefano contr ol for adult s with diabe manoj: <7.0 Not Available [facility] ([facility]) [address] [facility], [place], [address], 07/07/2023 03:07:56 07/05/2007/06/2023 VITAM IN D, 25-HY DROXY vitamin D, 25-hydroxy 15.4 NG/mL 30.0-1 00.0 below low normal Vitam in D defic iency has been defin ed by the Insti tute of Medic ine and an Endoc rine Socie ty pract ice guide line as a level of serum 25-OH vitam in D less than 20 ng/mL (1,2) . The Endoc rine Socie ty went on to furth er defin e vitam in D insuf ficie ncy as a level betwe en 21 and 29 ng/mL (2). 1. IOM (Inst itute of Medic ine). 2010. Dieta ry refer ence jazzy es for calci um and D. Tisha barajas [place]: [facility] . 2. Holic k MF, Binkl ey [place], Bisch off-F errar i JAY, et al. Evalu ation , treat ment, and preve ntion of vitam in D defic iency : an Endoc rine Socie ty clini william pract ice guide line. JCEM. 2010; 96(7) :1911 -30. Not Available [facility] ([facility]) [address] [facility], [place], [address], 07/07/2023 03:07:56 07/05/2007/07/2023 TSH RFX ON ABNOR MAL TO FREE T4 TSH 3.210 uIU/m L 0.450- 4.500 Not Available [facility] ([facility]) [address] [facility], [place], [address], 07/07/2023 03:08:00 07/05/20 23 07/06/2023 THERESE EN AUTHO RIZAT ION written authorizatio n Kenney Sheikh en Autho rizat ion Recei jesse. Autho rizat ion recei jesse from PER ORIGI NAL ORDER 07-06 Logge d by Ethan Duarte Not Available [facility] ([facility]) [address] [facility], [place], [address], 07/07/2023 03:08:01 10/08/19 22 10/06/2021 home sleep study No observ ation record ed. [id number] [facility] [address] [place], [address], 11/09/2022 20:42:20 10/12/19 22 10/06/2021 home sleep study No observ ation record ed. [id number] [facility] [address] [place], [address], 11/09/2022 20:42:20 Result Notes None recorded. Problems Name Problem SNOMED Code Status Onset Date Resolution Date Notes Provider Name and Address Organization Details Recorded Time Anxiety 37518647 Active 2018 Not Available [facility] 3 20:41:02 Acid reflux 767024032 Active 2018 Not Available [facility] 3 20:41:02 Upper respiratory infection 99660207 Active 2022 GREGORIA Page [address], [address], [place], [address] , [employer] 3 16:59:04 Cobalamin deficiency 663922733 Active 2022 POPEYE Hawkins-C [address], [address], [place], [address] , [employer] 3 08:17:51 Vitamin D deficiency 03046546 Active 2022 POPEYE Hawkins-C [address], [address], [place], [address] , [employer] 3 08:17:59 Notes:Medical History: Anxie ty Rhinitis Obesity with severe OSAHS, AHI = 31, 10/06/21 HUYN Problem Notes None recorded. Medical Equipment None Reported. Medications Name Sig Start Date Stop Date Status Note LastModified by Organization Details LastModified Time amoxicillin 500 mg capsule TK ONE C PO BID FOR 10 DAYS 10/04 completed Not Available Not Available Not Available buspirone 5 mg tablet 10/04 completed Not Available Not Available Not Available prednisone 10 mg tablet 12/04 completed Not Available Not Available Not Available Zyrtec-D 5 mg-120 mg tablet,exte nded release TAKE 1 TABLET BY MOUTH TWICE DAILY active Not Available Not Available No t Available tizanidine 2 mg tablet 09/22 completed Not Available Not Available Not Available clindamycin HCl 300 mg capsule TAKE 1 CAPSULE BY MOUTH THREE TIMES A DAY active Not Available Not Available No t Available azithromyci n 250 mg tablet TAKE 2 TABLETS BY MOUTH TODAY, THEN TAKE 1 TABLET DAILY FOR 4 DAYS DIRECTED active Not Available Not Available No t Available ofloxacin 0.3 % eye drops 2 DROPS BOTH EYES 4 TIMES A DAY active Not Available Not Available No t Available methylpheni date 10 mg tablet TAKE 1 TABLET BY MOUTH TWICE A DAY WITH 20MG FOR DOSE OF 30MG TOTAL active Not Available Not Available No t Available hydrocodone 5 mg-acetamin ophen 325 mg tablet TAKE 1 TABLET BY MOUTH EVERY 6 HOURS NEEDED 09/22 completed Not Available Not Available Not Available methylpheni date 20 mg tablet TAKE 1 TABLET BY MOUTH IN THE MORNING AND 1 TABLET BY MOUTH AT MIDDAY active Not Available Not Available No t Available carbamazepi ne ER 100 mg tablet,exte nded release,12 hr active Not Available Not Available Not Available sumatriptan 25 mg tablet TAKE 1 TABLET BY MOUTH AT ONSET OF MIGRAINE WITH FLUIDS, MAY REPEAT IN 2 HOURS IF NEEDED. MAX 8/DAY active Not Available Not Available No t Available ondansetron HCl 4 mg tablet TAKE 1 TABLET BY MOUTH EVERY 8 HOURS active Not Available Not Available No t Available prednisone 20 mg tablet TAKE 4 TABS DAILY X5 DAYS, THEN 2 TABS DAILY X5 DAYS active Not Available Not Available No t Available dextroamphe tamine-amph etamine 10 mg tablet 10/04 completed Not Available Not Available Not Available doxycycline hyclate 50 mg capsule 10/04 completed Not Available Not Available Not Available sertraline 100 mg tablet TAKE 1 TABLET BY MOUTH EVERY DAY active Not Available Not Available No t Available lithium carbonate 150 mg capsule TAKE 1 CAPSULE BY MOUTH EVERY DAY AT BEDTIME FOR 30 DAYS active Not Available Not Available No t Available metronidazo le 500 mg tablet TAKE 1 TABLET BY MOUTH EVERY 8 HOURS FOR 10 DAYS 09/22 completed Not Available Not Available Not Available fexofenadin e 180 mg tablet Take 1 tablet every day by oral route for 90 days. 09/22 completed Not Available Not Available Not Available ciprofloxac in 500 mg tablet 10/04 completed Not Available Not Available Not Available omeprazole 40 mg capsule,del ayed release 09/22 completed Not Available Not Available Not Available butalbital- acetaminoph en-caffeine 50 mg-325 mg-40 mg tablet 10/04 completed Not Available Not Available Not Available amoxicillin 500 mg tablet Take 1 tablet twice a day by oral route for 10 days. 09/22 completed Not Available Not Available Not Available cyclopentol ate 1 % eye drops INSTILL 1 DROP IN THE RIGHT EYE BID FOR 7 DAYS active Not Available Not Available No t Available propranolol 10 mg tablet TAKE 1 TABLET BY MOUTH TWICE A DAY active Not Available Not Available No t Available amoxicillin 875 mg tablet TAKE 1 TABLET BY MOUTH EVERY 12 HOURS active Not Available Not Available No t Available prednisolon e acetate 1 % eye drops,suspe nsion 10/04 completed Not Available Not Available Not Available dextroamphe tamine-amph etamine ER 20 mg 24hr capsule,ext end release TAKE 1 CAPSULE BY MOUTH EVERY DAY IN THE MORNING active Not Available Not Available No t Available dicyclomine 20 mg tablet TAKE 1 TABLET BY MOUTH 4 TIMES DAILY active Not Available Not Available No t Available carbamazepi ne ER 200 mg tablet,exte nded release,12 hr 10/04 completed Not Available Not Available Not Available pantoprazol e 40 mg tablet,wally yed release TAKE 1 TABLET BY MOUTH EVERY DAY active Not Available Not Available No t Available oseltamivir 75 mg capsule TAKE 1 CAPSULE BY MOUTH TWICE A DAY FOR 5 DAYS active Not Available Not Available No t Available neomycin-po lymyxin-dex ameth 3.5 mg/mL-10,00 0 unit/mL-0.1 % eye drops 10/04 completed Not Available Not Available Not Available buspirone 10 mg tablet TAKE 1 TABLET BY MOUTH EVERY DAY NEEDED FOR ANXIETY active Not Available Not Available No t Available indomethaci n 25 mg capsule 09/22 completed Not Available Not Available Not Available omeprazole 20 mg capsule,del ayed release TAKE 1 CAPSULE BY MOUTH EVERY DAY active Not Available Not Available No t Available dextroamphe tamine-amph etamine ER 10 mg 24hr capsule,ext end release TAKE 1 CAPSULE BY MOUTH EVERY DAY WITH 20MG CAPSULE active Not Available Not Available No t Available ibuprofen 600 mg tablet TAKE 1 TABLET BY MOUTH EVERY 6 HOURS WITH FOOD NEEDED 09/22 completed Not Available Not Available Not Available methylpredn isolone 4 mg tablets in a dose pack TAKE 6 TABLETS ON DAY 1 DIRECTED ON PACKAGE AND DECREASE BY 1 TAB EACH DAY FOR A TOTAL OF 6 DAYS active Not Available Not Available No t Available propranolol 20 mg tablet TAKE 1 TABLET BY MOUTH TWICE A DAY active Not Available Not Available No t Available fluticasone propionate 50 mcg/actuati on nasal spray,suspe nsion SHAKE LIQUID AND USE 1 SPRAY IN EACH NOSTRIL TWICE DAILY 09/22 completed Not Available Not Available Not Available sertraline 50 mg tablet TAKE 1 TABLET BY MOUTH EVERY DAY IN THE MORNING active Not Available Not Available No t Available doxycycline hyclate 100 mg tablet 10/04 completed Not Available Not Available Not Available naproxen 500 mg tablet TAKE 1 TABLET BY MOUTH TWICE A DAY -TAKE WITH FOOD active Not Available Not Available No t Available amoxicillin 875 mg-potassiu m clavulanate 125 mg tablet TAKE TABLET BY MOUTH 2 TIMES A DAY FOR 7 DAYS active Not Available Not Available No t Available Bactrim DS 800 mg-160 mg tablet Take 1 tablet every 12 hours by oral route for 7 days. 09/22 completed Not Available Not Available Not Available dextroamphe tamine-amph etamine ER 5 mg 24hr capsule,ext end release active Not Available Not Available Not Available Adderall XR 15 mg capsule,ext ended release active Not Available Not Available Not Available escitalopra m 10 mg tablet TAKE 1 TABLET BY MOUTH EVERY MORNING 10/28 completed Not Available Not Available Not Available escitalopra m 20 mg tablet TAKE 1 TABLET BY MOUTH EVERYDAY AT BEDTIME 10/28 completed Not Available Not Available Not Available aripiprazol e 10 mg tablet TAKE 1 TABLET BY MOUTH EVERYDAY AT BEDTIME active Not Available Not Available No t Available atomoxetine 25 mg capsule TAKE 1 CAPSULE EVERY DAY FOR 1 WEEK,THEN TAKE 2 CAPSULES EVERY AM FOR ONE WEEK, TAKE 3 CAPS EVERY AM active Not Available Not Available No t Available atomoxetine 40 mg capsule 11/14 completed Not Available Not Available Not Available aripiprazol e 5 mg tablet TAKE 1 TABLET BY MOUTH EVERY DAY AT BEDTIME active Not Available Not Available No t Available bupropion HCl XL 300 mg 24 hr tablet, extended release TAKE 1 TALBET BY MOUTH EVERY MORNING WITH 150 MG FOR TOTAL DOSE OF 450 MG active Not Available Not Available No t Available bupropion HCl XL 150 mg 24 hr tablet, extended release TAKE 1 TABLET BY MOUTH EVERY MORNING WITH 300 MG FOR TOTAL DOSE OF 450 MG active Not Available Not Available No t Available escitalopra m 5 mg tablet TAKE 1 TABLET BY MOUTH EVERY DAY IN THE MORNING 10/28 completed Not Available Not Available Not Available duloxetine 30 mg capsule,del ayed release 10/04 completed Not Available Not Available Not Available duloxetine 60 mg capsule,del ayed release 10/04 completed Not Available Not Available Not Available Boostrix Tdap 2.5 Lf unit-8 mcg-5 Lf/0.5 mL intramuscul ar syringe TO BE ADMINISTE RED BY PHARMACIS T FOR IMMUNIZAT ION active Not Available Not Available No t Available Vyvanse 30 mg capsule 10/04 completed Not Available Not Available Not Available Vyvanse 60 mg capsule 10/04 completed Not Available Not Available Not Available cholecalcif shyam (vitamin D3) 50 mcg (2,000 unit) capsule TAKE 1 CAPSULE BY MOUTH EVERY DAY active Not Available Not Available No t Available Gavilyte-C 240 gram-22.72 gram-6.72 gram-5.84 gram oral solution 10/17 completed Not Available Not Available Not Available guanfacine ER 1 mg tablet,exte nded release 24 hr TAKE 1 TABLET BY MOUTH EVERY EVENING active Not Available Not Available No t Available Ubrelvy 50 mg tablet Take 1 tablet by oral route as needed. 2021 active Not Available Not Available Not Avai lable Flucelvax Quad 60 mcg (15 mcg x 4)/0.5 mL intramuscul ar susp PHARMACY ADMINISTE RED 09/22 completed Not Available Not Available Not Available Vitals Date Recorded Body mass index (BMI) Body height Body weight Provider Name and Address Organization Details Last Updated DateTime 09/22/2021 35.9 kg/m2 182.88 cm 788215.98 g Not Available [facility] 11/09/2022 20:40:07 Date Recorded Body mass index (BMI) Body height Oxygen saturation Oxygen saturation in Arterial blood by Pulse oximetry Heart rate Body temperature Body weight Systolic And Diastolic Provider Name and Address Organization Details Last Updated DateTime 2 34 kg/m2 182.88 cm 98.02 % 98.02 % 79 /min 96.4 [degF] 821071. 68 g 136/72 mm[Hg] Not Available [facility] 20:40:05 Date Recorded Body mass index (BMI) Body height Oxygen saturation Oxygen saturation in Arterial blood by Pulse oximetry Heart rate Body temperature Body weight Systolic And Diastolic Provider Name and Address Organization Details Last Updated DateTime 2 35 kg/m2 182.88 cm 98 % 98 % 67 /min 97.9 [degF] 155211. 83 g 120/80 mm[Hg] Not Available [facility] 3 20:40:05 Date Recorded Body height Body mass index (BMI) Body weight Body temperature Heart rate Oxygen saturation Oxygen saturation in Arterial blood by Pulse oximetry Systolic And Diastolic Provider Name and Address Organization Details Last Updated DateTime 3 182.88 cm 33.9 kg/m2 382734. 09 g 98 [degF] 81 /min 98 % 98 % 122/80 mm[Hg] Tamara Covington LPN [place] [facility] 3 08:10:56 Date Recorded Body mass index (BMI) Body height Oxygen saturation Oxygen saturation in Arterial blood by Pulse oximetry Heart rate Body temperature Body weight Systolic And Diastolic Provider Name and Address Organization Details Last Updated DateTime 2 34.7 kg/m2 182.88 cm 97 % 97 % 76 /min 97 [degF] 473107. 65 g 138/76 mm[Hg] Not Available [facility] 3 20:40:05 Social History Question Answer Notes LastModified by Spark[employer] Details LastModified Time Tobacco Smoking Status Never Smoker Not Available [facility] 11/09/2022 20:39:30 What Is Your Level Of Caffeine Consumption? Occasional [id number] Information not available 11/09/2022 In The 14 Days Before Symptom Onset, Have You Had Close Contact With A Laboratory-confirm ed COVID-19 While That Case Was Ill? No [id number] Information not available 11/09/2022 In The 14 Days Before Symptom Onset, Have You Had Close Contact With A Person Who Is Under Investigation For COVID-19 While That Person Was Ill? No [id number] Information not available 11/09/2022 What Type Of Diet Are You Following? REGULAR [id number] Information not available 11/09/2022 Have You Recently Traveled Abroad? No [id number] Information not available 11/09/2022 Do You Have Any Dietary Restrictions? No [id number] Information not available 11/09/2022 Sex: Unknown Functional Status Question Answer Note LastModified by Organizat ion Details LastModified Time Do you use any illicit or recreational drugs? No [id number] Information not available 11/09/2022 Do you or have you ever used any other forms of tobacco or nicotine? No [id number] Information not available 11/09/2022 What is your level of alcohol consumption? None [id number] Information not available 11/09/2022 What is your exercise level? Occasional [id number] Information not available 11/09/2022 Mental Status None recorded. Family History Nothing Reported. Medical History No medical history recorded. Past Encounters Encounter ID Performer Location Encounter Start Date Encounter Closed Date Diagnosis/Indication Diagnosis SNOMED-CT Code Diagnosis ICD10 Code Diagnosis Note [id number] Charla Kruse MD [facility] Primary [facility] [place] [address] [place] [address] [address] [place] [address] 09/22/2021 00:00:00 09/22/2021 11:42:54 [id number] GREGORIA Page [facility] Primary [facility] [place] [address] [place] [address] [address] [place] [address] 03/18/2022 00:00:00 03/18/2022 13:13:01 [id number] GREGORIA Page [facility] Primary [facility] [place] [address] [place] [address] [address] [place] [address] 04/21/2022 00:00:00 04/21/2022 09:07:09 [id number] GREGORIA Page [facility] Primary [facility] [place] [address] [place] [address] [address] [place] [address] 07/20/2022 00:00:00 07/20/2022 15:59:51 [id number] Charla Kruse MD [facility] Primary [facility] [place] [address] [place] [address] [address] [place] [address] 07/05/2023 08:01:26 07/05/2023 08:36:02 Adult health examination 487508056 Z00.00 Encouraged fresh fruits and veggies-no t the best intake, notes diet high in saturated fats/carbs Increase daily water intake-not es good intakeEnco urage 30 mins of daily exercise-d oesn't exercise-n ot a smoker-occ asional drinker-al ready given flu shot this year Cobalamin deficiency 190 252714 E53.8 doesn't take any vitamins Vitamin D deficiency 347 45106 E55.9 doesn't take any vitamins Health Concerns Section Related Observation LastModified by Organization Detai ls LastModified Time None Recorded Concern Status LastModified by Organization Details LastModified Time None Recorded Advance Directives Directive None Recorded Payers Insurance Date Sequence Insurance Name Policy Number Policy Galvez Covered Member ID Galvez Member ID Guarantor Name 07/05/2023 1 [facility] [id number] Josedunia Munson [id number] Jose Bhardwajmar 06/30/2023 [facility] Josedunia Munson SELF SELF Jose Munson 01/06/2024 1 [facility] [id number] Jose Mentcle [id number] Jose Bhardwajmar Notes Date Note Type Note Provider Name and Address Organization Details Recorded Time 07/05/2023 text/html Pt is here to complete annual physical ALEJA Hawkins [address] [facility] [address], [place], [address], [place] [facility] [employer] 07/05/2023 09:01:22
--- OUTSIDE RECORDS SUMMARY | 2025-03-24 17:56 | XMS_ITS | Clinical Summary ---
Author Organization [facility] Address [facility] [place] [address] Care Team Providers Care Director Speech Name Role Phone Charla Kruse MD Primary Care Provider [phone] Allergies No known active allergies Medications indomethacin [...] - 2023-2 5 season) 2024 PHQ-2 (Physician [place]) 09/11/2024 Hepatitis C Completed 07/10/2018 HPV Vaccines [...] with a HCV Nucleic Acid Amplification test (655855). 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[employer] Performed at: 01 - [facility] [address] [id number] Ground Water Technician: Carlo Arredondo PhD, Phone: [phone] us [facility] Final Resul t [facility] [address] [place] [address] [facility] 1 from Last 3 Months or Most Recently Relevant to Health Maintenance Advance Directives * Full Code (Latest Code Status on File) Date Activated Date Inactivated Comments 12/14/2018 1:20 PM 12/15/2018 11:25 AM Care Teams Director Speech Relationship Specialty Start Date End Date Charla Kruse MD [address] [place] [address] [place] [address] PCP - General FAMILY PRACTICE 12/05/18
--- OUTSIDE RECORDS SUMMARY | 2025-03-24 17:56 | XMS_ITS | Encounter Summary ---
Author Organization [facility] Health Address [address] [facility] [place] [address] Care Team Providers Care Pediatric Ophthalmologist Name Role Phone Kinga Owen Primary Care Provider [phone] Encounter Details Date Type Department Care Team (Late st Contact Info) Description 01/13/2018 Ophth Exam [facility] [address] [place] [address] Nigel Alas MD [address] [place] [address] Social History Tobacco Use Types Packs/Day Years Used Date Smoking Tobacco: Never Smokeless Tobacco: Never Sex and Gender Information Value Date Recorded Sex Assigned at Not on file Legal 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
--- OUTSIDE RECORDS SUMMARY | 2025-03-24 17:56 | XMS_ITS | Encounter Summary ---
Author Organization [facility] Address [facility] [place] [address] Care Team Providers Care Cable Armorer Name Role Phone Kinga Owen Primary Care Provider [phone] Charla Kruse MD Primary Care Provider [phone] Encounter Details Date Type Department Care Team (Late st Contact Info) Description 07/25/2018 [place] Message Enc [facility] Family & Internal Medicine [id number] [place] [address] Kinga Owen FNP [facility] [place] [address] RE: RE: RE: Test Results [...] on filedocumented in this encounter Care Teams Cable Armorer Relationship Specialty Start Date End Date Kinga Owen FNP [address] [place] [id number] PCP - General NURSE PRACTITIONER 06/26/18 12/04/18 Charla Kruse MD [address] [place] [id number] PCP - General FAMILY PRACTICE 12/05/18 documented as of this encounter
--- OUTSIDE RECORDS SUMMARY | 2025-03-24 17:56 | XMS_ITS | Clinical Summary ---
Author Organization [facility] Address [address] [facility] [place] [address] Care Team Providers Care Business Asst Name Role Phone Brayden Kinga [facility] Primary Care Provider [phone] Source Comments [facility],non-owned Affiliates and Associated Physician Practices is amultiple site organization consisting of ambulatory clinics and hospital sitesin [place], [place], [place] and [place]. This disclosure is being madepursuant to the Care Everywhere program and may not contain all information available regarding this patient. 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 Gender Identity Not on file Sexual Orientation Not on file Last Filed Vital Signs Vital Sign Reading Time Taken Comments Blood Pressure 120/80 09/02/2021 5:06 PM TURNSTILE ATTENDANT Pulse 87 09/02/2021 5:06 PM TURNSTILE ATTENDANT Temperature 36.7 C (98 F) 09/02/2021 5:06 PM TURNSTILE ATTENDANT Respiratory Rate 16 09/02/2021 5:06 PM TURNSTILE ATTENDANT Oxygen Saturation 96% 09/02/2021 5:06 PM TURNSTILE ATTENDANT Inhaled Oxygen Concentration - - Weight 117.9 kg (260 lb) 09/02/2021 5:06 PM TURNSTILE ATTENDANT Height 182.9 cm (6') 09/02/2021 5:06 PM TURNSTILE ATTENDANT Body Mass Index 35.26 09/02/2021 5:06 PM TURNSTILE ATTENDANT Plan of Treatment Health Maintenance Due Date [...] age to complete this [place] [address] [employer] Advance Directives * Full Code (Latest Code Status on File) Date Activated Date Inactivated Comments 02/14/2018 6:57 PM 02/18/2018 12:19 PM * Full Code Date Activated Date Inactivated Comments 02/14/2018 5:36 PM 02/14/2018 6:57 PM Care Teams Business Asst Relationship Specialty Start Date End Date Kinga Owen APRN-CNP [address] [place] [id number] PCP - General Nurse Practitioner 02/14/18
--- NOTE | 2025-03-24 18:26 | ED_ITS ---
HPI - Anxiety General Chief Complaint: Anxiety Stated Complaint: bilateral hand tingling, JAY, anxiety Time Seen by Provider: 03/24/25 17:44 History of Present Illness HPI narrative: 34 y/o M with a PMHx of depression, anxiety, ADHD, presents to the ED for reported increased confusion, chest pain, headache, bilateral hand tingling. Recently hospitalized at [facility] for SI. He denies current SI and HI. Related Data Allergies Allergy/AdvReac Type Severity Reaction Status Date / Time No Known Allergies Allergy Unverified 03/24/25 16:12 Course Vital Signs Vital signs: Vital Signs Temperature 98.0 F 03/24/25 16:16 Pulse Rate 86 03/24/25 16:16 Respiratory Rate 20 03/24/25 16:16 Blood Pressure 161/106 H 03/24/25 16:16 Pulse Oximetry 97 03/24/25 16:16 Temperature 98.0 F 03/24/25 16:16 Pulse Rate 86 03/24/25 16:16 Respiratory Rate 20 03/24/25 16:16 Blood Pressure 161/106 H 03/24/25 16:16 Pulse Oximetry 97 03/24/25 16:16 Discharge Plan Discharge Patient Language: Upper Sorbian Follow-up/Referrals: UNKNOWN,DOCTOR [Primary Care Provider] -
--- NOTE | 2025-03-24 18:44 | ECG_ITS ---
Test Date: 2025-03-24 18:57:14 Measurements Intervals Forest Rate: 75 P: 29 HI: 167 QRS: -32 QRSD: 102 T: 15 QT: 371 QTc: 417 Interpretive Statements SINUS RHYTHM LEFT AXIS DEVIATION [QRS AXIS < -30] VOLTAGE CRITERIA FOR LVH [MEETS CRITERIA IN ONE OF: R(aVL), S(V1), R(V5), R(V5/V6)+S(V1)] ABNORMAL ECG No previous ECG available for comparison Electronically Signed On 03-25-2025 10:06:48 CDT by Juan Miguel Young M.D.
--- NOTE | 2025-03-24 18:46 | ED.GENADULT ---
HPI - General Adult General Chief complaint: Anxiety Stated complaint: bilateral hand tingling, JAY, anxiety Time Seen by Provider: 03/24/25 17:44 History of Present Illness HPI narrative: Pt presents with numerous complaints. Pt states that he wasn't feeling well at work and then developed JAY all over head. Pt states he does not remeber how he got here and the first thing he remembers after being at work was being in the waiting room here. Pt also complains of RLQ abdominal pain but is not sure when that started. Pt complains of tightness in chest and had tingling in fingers at triage. Pt is not sure how long this lasted. Pt is asking for meds for his JAY. Pt is asking if his is here. Related Data Allergies Allergy/AdvReac Type Severity Reaction Status Date / Time No Known Allergies Allergy Verified 03/24/25 18:52 Review of Systems Review of Systems: All systems reviewed & are unremarkable except as noted in HPI and below Exam Const: General: healthy appearing and no acute distress Nutritional Appearance: well nourished Orientation/consciousness: patient oriented x3 Limitations: no limitations HENMT: Head: normal to inspection Face and sinus: normal facial exam Throat: posterior oropharynx normal Eyes: Conjunctivae: conjunctivae normal Pupils: Equal, round and reactive pupils present EOM: EOMs intact bilaterally Chest: Chest palpation & inspection: normal inspection of the chest Resp: Effort & Inspection: normal respiratory effort Auscultation: clear to auscultation bilaterally Cardio: Rate: regular rate Rhythm: regular rhythm GI: GI Palp: Yes Soft to palpation and Yes Tenderness to palpation present (GI) (mild rlq tenderness) Auscultation: normal bowel sounds Back/Spine/Pelvis: Back: no CVA tenderness Skin: General skin exam: normal color Rashes: no rashes Wounds: no wounds Neuro: General: patient oriented x3, moves all extremities, no meningeal signs, no focal motor deficits and CN's II-XI intact bilaterally Cranial nerves: Yes Nystagmus not present Speech: normal speech Extrem: General: normal to inspection and no clubbing, cyanosis or edema Psych: Mental Status: mental status grossly normal Affect: normal affect Attitude: cooperative Course Vital Signs Vital signs: Vital Signs Temperature 98.0 F 03/24/25 16:16 Pulse Rate 86 03/24/25 16:16 Respiratory Rate 20 03/24/25 16:16 Blood Pressure 161/106 H 03/24/25 16:16 Pulse Oximetry 97 03/24/25 16:16 Temperature 98.5 F 03/24/25 18:52 Pulse Rate 79 03/24/25 18:52 Respiratory Rate 16 03/24/25 18:52 Blood Pressure 132/90 03/24/25 18:52 Pulse Oximetry 96 03/24/25 18:52 Oxygen Delivery Room Air 03/24/25 18:52 Medical Decision Making MDM Narrative Medical decision making narrative: Pt presents with severa complaints. Pt has JAY and mental status changes and chest tightness and finger tingling and rlq abdominal pain. will CT head and abdomen and do cardiac work up and ekg and cxr and will give some fentanyl for pain. ct abd and pelvis and head non acute, labs and ekg and cxr not concerning. will send home with follow up with his PCP on Vital Signs Vital Signs: Vital Signs Temperature 98.0 F 03/24/25 16:16 Pulse Rate 86 03/24/25 16:16 Respiratory Rate 20 03/24/25 16:16 Blood Pressure 161/106 H 03/24/25 16:16 Pulse Oximetry 97 03/24/25 16:16 Temperature 98.5 F 03/24/25 18:52 Pulse Rate 79 03/24/25 18:52 Respiratory Rate 16 03/24/25 18:52 Blood Pressure 132/90 03/24/25 18:52 Pulse Oximetry 96 03/24/25 18:52 Oxygen Delivery Room Air 03/24/25 18:52 Lab Data 03/24/25 18:53 03/24/25 18:53 Labs: Lab Results 03/24/25 Range/Units 18:53 WBC 8.7 (4.5-10.0) K/mm3 RBC 5.15 (4.6-6.20) M/mm3 Hgb 14.6 (14.0-18.0) g/dL Hct 43.6 (42.0-52.0) % MCV 84.7 (80-100) fl MCH 28.3 (26-34) pg MCHC 33.5 (32-36) g/dl RDW 13.1 (11.5-14.5) % Plt Count 425 H (150-375) k/mm3 MPV 9.0 (7.4-10.4) fl Immature Gran % (Auto) 0.5 (0-0.5) % Neut % (Auto) 54.1 (45.5-73.1) % Lymph % (Auto) 34.3 (18.3-44.2) % [place] % (Auto) 8.1 (2.6-8.5) % Eos % (Auto) 2.0 (0-4.4) % Baso % (Auto) 1.0 (0.2-1.2) % Lymph # (Auto) 2.98 (0.9-3.2) K/mm3 [place] # (Auto) 0.7 H (0.1-0.6) K/mm3 Eos # (Auto) 0.2 (0-0.3) K/mm3 Baso # (Auto) 0.1 (0.0-0.1) K/mm3 Abs Immat Gran (auto) 0.04 H (0.00-0.031) K/mm3 Absolute Neuts (auto) 4.7 (1.3-6.7) K/mm3 Absolute Nucleated RBC 0.000 (0.0-0.012) K/mm3 Nucleated RBC % 0.0 (0.0-0.2) % PT 12.8 (11.1-14.7) Seconds INR 0.9 APTT 28.9 (22.3-36.8) Seconds Sodium 135 L (137-145) mmol/L Potassium 4.3 (3.4-5.0) mmol/L Chloride 102 (98-107) mmol/L Carbon Dioxide 23 (22-30) mmol/L Anion Gap 10 (4-12) mmol/L BUN 11 (9-20) mg/dL Creatinine 0.94 (0.7-1.3) mg/dL Estim Creat Clear Calc 130 ml/min Estimated GFR > 60 (59 - ) Glucose 93 (65-110) mg/dL Calcium 9.3 (8.4-10.2) mg/dL Total Bilirubin 0.3 (0.2-1.3) mg/dL AST 39 (17-59) U/L ALT 30 (6-50) U/L Alkaline Phosphatase 65 (38-126) U/L Troponin I < 0.012 (0.000-0.034) ng/mL NT-Pro-B Natriuret Pep < 20 (19.9-100) pg/mL Total Protein 7.5 (6.3-8.2) g/dL Albumin 4.5 (3.5-5.1) g/dL Discharge Plan Discharge Clinical Impression: Acute anxiety, Headache Patient Disposition: Home Condition: Improved Instructions: Antibiotic Form, Acute Headache (DC), Anxiety (ED) Patient Language: Polish Follow-up/Referrals: UNKNOWN,DOCTOR [Primary Care Provider] -
[2025-03-24 18:52] VITALS: BP 132/90; PULSE 79; RESP 16; TEMP 36.9; O2SAT 96
[2025-03-24 19:00] LABS: Hematocrit 43.6 % (42.0-52.0); Hemoglobin 14.6 g/dL (14.0-18.0); Immature Granulocyte Percent A 0.5 % (0-0.5); Lymphocytes Absolute Auto 2.98 K/mm3 (0.9-3.2); Mean Corpuscular HGB Conc 33.5 g/dl (32-36); Mean Corpuscular Hemoglobin 28.3 pg (26-34); Mean Corpuscular Volume 84.7 fl (80-100); Nucleated Red Blood Cells Absolute Auto 0.000 K/mm3 (0.0-0.012); Nucleated Red Blood Cells Perc 0.0 % (0.0-0.2); Platelet Count Result 425 k/mm3 (150-375); Red Blood Count 5.15 M/mm3 (4.6-6.20); White Blood Count 8.7 K/mm3 (4.5-10.0)
[2025-03-24 19:11] LABS: INR 0.9; Prothrombin Time 12.8 Seconds (11.1-14.7)
[2025-03-24 19:12] LABS: Partial Thromboplastin Time 28.9 Seconds (22.3-36.8)
[2025-03-24 19:15] LABS: Alanine Aminotransferase 30 U/L (6-50); Albumin Level 4.5 g/dL (3.5-5.1); Alkaline Phosphatase 65 U/L (38-126); Anion Gap 10 mmol/L (4-12); Aspartate Amino Transferase 39 U/L (17-59); Bilirubin,Total 0.3 mg/dL (0.2-1.3); Blood Urea Nitrogen 11 mg/dL (9-20); Calcium 9.3 mg/dL (8.4-10.2); Carbon Dioxide 23 mmol/L (22-30); Chloride 102 mmol/L (98-107); Estimated CRCL calculation 130 ml/min; Estimated Glomerular Filt Rate > 60; Glucose 93 mg/dL (65-110); Potassium 4.3 mmol/L (3.4-5.0); Sodium 135 mmol/L (137-145); Total Protein 7.5 g/dL (6.3-8.2)
[2025-03-24 19:25] LABS: NT Pro B Type Natriuretic Pept < 20 pg/mL (19.9-100); Troponin I < 0.012 ng/mL (0.000-0.034)
[2025-03-24] MEDS: fentaNYL CITRATE INJ (*CRX) 100 MCG/2 ML VIAL 50 MCG IV PUSH (19:38)
--- NOTE | 2025-03-24 19:43 | PC.NURSE ---
This RN called and spoke to pt and gave update on pt. This RN will call back and update on pt status.
[2025-03-24 20:45] VITALS: BP 145/81; PULSE 75; RESP 20; O2SAT 99
[2025-03-24 21:53] VITALS: BP 130/85; PULSE 77; RESP 20; TEMP 37; O2SAT 97
== END 2025-03-24 21:53 | disposition home or self-care (01) ==
PROVIDERS: Emergency Provider Emergency Medicine
DX: R51.9 Headache, unspecified (principal); F41.9 Anxiety disorder, unspecified
CPT/HCPCS: 36415; 70450; 71045; 74177; 80053; 83880; 84484; 85025; 85610; 85730; 93005; 96374; 99284; J3010; Q9967